=== PATIENT | female | born 1980 | race Caucasian/White ===

== ENCOUNTER 2018-05-10 12:08 | Inpatient (IN) | payer BC ==
[~2018-05-10] VITALS: Ht 175.3 cm; Wt 49.4 kg
--- OUTSIDE RECORDS SUMMARY | 2018-05-10 12:11 | XMS REPORT | Clinical Summary ---
Author Author [facility] Address Unknown Phone Unavailable Care Team Providers Care Supervisor Compressed Yeast Name Role Phone System, Provider Not In MD PCP Unavailable Allergies Active Allergy Reactions Severity Noted Date Comments Prochlorperazine 11/13/2017 Penicillins 11/13/2017 Propranolol 11/13/2017 Metoclopramide Hcl 11/13/2017 Guaifenesin 11/13/2017 Current Medications Prescription Sig. Disp. Refills Start End Date Status Date midodrine (PROAMATINE) Take 2.5 mg by mouth 3 Active 2.5 MG tabletIndications: (three) times a day. Symptomatic Orthostatic Hypotension pregabalin (LYRICA) 300 Take 600 mg by mouth Active MG capsuleIndications: daily. Fibromyalgia potassium chloride Take 20 mEq by mouth 2 Active (K-DUR) 20 MEQ CR (two) times a day. tabletIndications: Hypokalemia folic acid (FOLVITE) 1 MG Take 1 mg by mouth daily. Active tabletIndications: Folate Deficiency levothyroxine (SYNTHROID, Take 50 mcg by mouth Active LEVOXYL) 50 mcg every morning. tabletIndications: Hypothyroidism pantoprazole (PROTONIX) Take 40 mg by mouth Active 40 MG EC daily. tabletIndications: Ulcer prevention thiamine 100 MG Take 100 mg by mouth Active tabletIndications: daily. Thiamine Deficiency cyanocobalamin 100 MCG Take 100 mcg by mouth Active tabletIndications: daily. Prevention of Vitamin B12 Deficiency risperiDONE (RisperDAL) 3 Take 3 mg by mouth 2 11/25/19 Discontin MG tablet (two) times a day. 18 ued ondansetron (ZOFRAN) 8 MG Take 8 mg by mouth every 11/25/19 Discontin tablet 8 (eight) hours as needed 18 ued for nausea or vomiting. oxyCODone (OxyCONTIN) 10 Take 10 mg by mouth every 11/25/19 Discontin mg tablet,oral 12 (twelve) hours. 18 ued only,ext.rel.12 hr ER tablet oxyCODone-acetaminophen Take 1 tablet by mouth 11/25/19 Discontin (PERCOCET) 10-325 mg per every 4 (four) hours as 18 ued tablet needed for moderate pain. OLANZapine (ZYPREXA) 10 Take 1 tablet (10 mg 30 tablet 0 11/24/19 12/24/19 MG tabletIndications: ED total) by mouth nightly 18 18 and anxiety as needed (anxiety) for up to 30 days. OLANZapine (ZYPREXA) 5 MG Take 1 tablet (5 mg 30 tablet 0 11/24/19 12/24/19 tabletIndications: ED and total) by mouth daily as 18 18 anxiety needed (anxiety) for up to 30 days. buprenorphine-naloxone Place 1 tablet under the 30 tablet 0 11/24/19 12/24/19 (SUBOXONE) 2-0.5 mg per tongue daily for 30 days. 18 18 SL tabletIndications: Opioid Dependence Active Problems Problem Noted Date Benzodiazepine dependence (HCC) 11/14/2017 Drug abuse (HCC) 11/14/2017 Encounters Date Type Specialty Care Team Description 11/13[facility]2017 [facility] - Encounter Humberto Thomas DO (Primary Dx); 11/24/2017 Susi Gaytan MD Anxiety disorder, Brennon Brennan MD unspecified type after 05/09/2017 Social History Tobacco Use Types Packs/Day Years Used Date Never Smoker Smokeless Tobacco: Never Used Alcohol Use Drinks/Week oz/Week Comments No Sex Assigned at Date Recorded Not on file Last Filed Vital Signs Vital Sign Reading Time Taken Blood Pressure 111/61 11/24/2017 6:37 AM CDT Pulse 93 11/24/2017 6:37 AM CDT Temperature 36.8 C (98.3 F) 11/24/2017 6:37 AM CDT Respiratory Rate 18 11/24/2017 6:37 AM CDT Oxygen Saturation 98% 11/24/2017 6:37 AM CDT Inhaled Oxygen - - Concentration Weight 62.8 kg (138 lb 6.4 oz) 11/24/2017 6:37 AM CDT Height 175.3 cm (5' 9") 11/14/2017 11:00 AM CDT Body Mass Index 20.44 11/24/2017 6:37 AM CDT Plan of Treatment Health Maintenance Due Date Last Done Comments CERVICAL CANCER SCREENING 2003 INFLUENZA VACCINE 02/03/2018 Procedures Procedure Name Priority Date/Time Associated Diagnosis Comments US DUPLEX VENOUS LOWER Routine 11/22/2017 Results for this EXTREMITY BILATERAL 9:10 AM CDT procedure are in the results section. ZZESTIMATED GFR Routine 11/21/2017 Results for this 11:50 AM CDT procedure are in the results section. HC COMPLETE BLD COUNT Routine 11/21/2017 Results for this W/AUTO DIFF 11:50 AM CDT procedure are in the results section. VITAMIN D 25 HYDROXY Routine 11/21/2017 Results for this LEVEL 11:50 AM CDT procedure are in the results section. FOLATE RBC (GROUP TEST) Routine 11/21/2017 Results for this 11:50 AM CDT procedure are in the results section. VITAMIN B12 LEVEL Routine 11/21/2017 Results for this 11:50 AM CDT procedure are in the results section. COMPREHENSIVE METABOLIC Routine 11/21/2017 Results for this PANEL 11:50 AM CDT procedure are in the results section. B NATRIURETIC PEPTIDE Routine 11/21/2017 Results for this 11:50 AM CDT procedure are in the results section. HEMOGLOBIN A1C STAT 11/14/2017 Results for this 10:25 AM CDT procedure are in the results section. ECG 12-LEAD STAT 11/13/2017 Results for this 11:04 PM CDT procedure are in the results section. LIPID PANEL STAT 11/13/2017 Results for this 10:50 PM CDT procedure are in the results section. ZZESTIMATED GFR STAT 11/13/2017 Results for this 10:50 PM CDT procedure are in the results section. LACTIC ACID LEVEL STAT 11/13/2017 Results for this 10:50 PM CDT procedure are in the results section. MAGNESIUM LEVEL STAT 11/13/2017 Results for this 10:50 PM CDT procedure are in the results section. PHOSPHORUS LEVEL STAT 11/13/2017 Results for this 10:50 PM CDT procedure are in the results section. SALICYLATE LEVEL STAT 11/13/2017 Results for this 10:50 PM CDT procedure are in the results section. ACETAMINOPHEN LEVEL STAT 11/13/2017 Results for this 10:50 PM CDT procedure are in the results section. ALCOHOL LEVEL, BLOOD STAT 11/13/2017 Results for this 10:50 PM CDT procedure are in the results section. T4, FREE STAT 11/13/2017 Results for this 10:50 PM CDT procedure are in the results section. THYROID STIMULATING STAT 11/13/2017 Results for this HORMONE 10:50 PM CDT procedure are in the results section. COMPREHENSIVE METABOLIC STAT 11/13/2017 Results for this PANEL 10:50 PM CDT procedure are in the results section. HC COMPLETE BLD COUNT STAT 11/13/2017 Results for this W/AUTO DIFF 10:50 PM CDT procedure are in the results section. URINE CULTURE STAT 11/13/2017 Results for this 10:28 PM CDT procedure are in the results section. URINALYSIS SCREEN AND STAT 11/13/2017 Results for this MICROSCOPY, WITH REFLEX 10:23 PM CDT procedure are in the TO CULTURE results section. URINE DRUGS OF ABUSE STAT 11/13/2017 Results for this SCREEN 10:23 PM CDT procedure are in the results section. after 05/09/2017 Results * Pv duplex venous lower extremity (11/22/2017 9:10 AM) Narrative Performed At [facility] Vascular Ultrasound Laboratory Lower Extremity Venous Report [address] [place] [address] Pat.Name:Basim LAUGHLIN.ID:[id number] .Date: 11/22/2017 Refer.MD:JUNG YANG MD Exam Time: 8:44:00 AMStudy Type:LE Venous Height:69inWeight:133lb BSA: 1.74 m2 DOBAge:1980,37Y Sex: FEMALESonogrphr: Morales Thrasher, BETSY, ROBERT Pat. Stat.:Inpatient Room:T6AN-059-J TapeVol: SB, CPT - 4: 48431 Echo Event ID:[id number] Order ID:[id number] Reason for Study:Bilateral leg edema; evaluate for DVT. Procedures:Colorflow, Grayscale/2D, Pulsed wave Doppler Race:C SUMMARY: DUPLEX SCAN OBSERVATIONS Deep VeinsSuperficial Veins RightLeft RightLeft GSV (prox) NormalNormal CFV Normal Normal (above knee) Femoral Normal Normal GSV (dist) Normal Normal Profunda Normal Normal (below knee) Popliteal Normal Normal PT (prox) Normal NormalSSV Normal Normal PT (dist) Normal Normal Peroneal Normal Normal RIGHT:There is normal compressibility with no evidence of echogenic material noted within the lumen of the visualized veins. Colorflow and Doppler signals are normal. LEFT:There is normal compressibility with no evidence of echogenic material noted within the lumen of the visualized veins. Colorflow and Doppler signals are normal. PRELIMINARY FINDINGS 1. No evidence of venous thrombosis in the above visualized veins. PHYSICIAN INTERPRETATION Venous examination of the both lower extremities demonstrated no evidence of venous thrombosis in the visualized veins.Normal compressibility and augmentation of all veins visualized. Signed 11/22/2017 10:44 AM Michael Matthew MD, RPVI Procedure Note Interface, Radiology Results In - 11/22/2017 10:44 AM CDT Vascular Ultrasound Laboratory Lower Extremity Venous Report [address] [place] [address] Pat.Name: KYLIE LAUGHLIN Pat.ID: [id number] .Date: 11/22/2017 Refer.MD: JUNG YANG MD Exam Time: 8:44:00 AM Study Type:LE Venous Height: 69in Weight: 133lb BSA: 1.74 m2 Age: 7 1980,37Y Sex: FEMALE Sonogrphr: BETSY Yu, ROBERT Pat. Stat.:Inpatient Room: [address] Vol: SB, CPT - 4: 30461 Echo Event ID:[id number] Order ID: [id number] Reason for Study:Bilateral leg edema; evaluate for DVT. Procedures:Colorflow, Grayscale/2D, Pulsed wave Doppler Race: C SUMMARY: DUPLEX SCAN OBSERVATIONS Deep Veins Superficial Veins Right Left Right Left GSV (prox) Normal Normal CFV Normal Normal (above knee) Femoral Normal Normal GSV (dist) Normal Normal Profunda Normal Normal (below knee) Popliteal Normal Normal PT (prox) Normal Normal SSV Normal Normal PT (dist) Normal Normal Peroneal Normal Normal RIGHT: There is normal compressibility with no evidence of echogenic material noted within the lumen of the visualized veins. Colorflow and Doppler signals are normal. LEFT: There is normal compressibility with no evidence of echogenic material noted within the lumen of the visualized veins. Colorflow and Doppler signals are normal. PRELIMINARY FINDINGS 1. No evidence of venous thrombosis in the above visualized veins. PHYSICIAN INTERPRETATION Venous examination of the both lower extremities demonstrated no evidence of venous thrombosis in the visualized veins. Normal compressibility and augmentation of all veins visualized. Signed 11/22/2017 10:44 AM Michael Matthew MD, RPVI Performing Organization Address [facility] Hospitalcode Phone Number [facility] [address] [place] [address] * Estimated GFR (11/21/2017 11:50 AM) Only the most recent of 2 results within the time period is included. GFR Non Af Amer 81 mL/min/1.73 m2 [facility] DEPARTMENT OF PATHOLOGY AND GENOMIC MEDICINE GFR Af Amer >90 mL/min/1.73 m2 [facility] DEPARTMENT OF Comment: PATHOLOGY AND Chronic kidney disease: <60 GENOMIC MEDICINE mL/min/1.73m2 Kidney failure: <15 mL/min/1.73m2 The estimated GFR is calculated from the IDMS-traceable Modification of Diet in Renal Disease Equation. The accuracy of the calculation is poor when the creatinine is normal. Calculated values >90 mL/min/1.73m2 are not reported. This equation has not been validated in children (<18 years), women, the elderly (>70 years), or ethnic groups other than Caucasians and Americans. Specimen Plasma specimen Performing Organization Address City/[facility]/Zipcode Phone Number [facility] DEPARTMENT OF [address] [place] [address] PATHOLOGY AND GENOMIC MEDICINE * Vitamin D 25 hydroxy level (11/21/2017 11:50 AM) Vitamin D, 25-hydroxy 56.6 30.0 - 150.0 ng/mL [facility] DEPARTMENT OF Comment: PATHOLOGY AND This assay reports the sum of [employer] MEDICINE 25-hydroxy vitamin D3 and 25-hydroxy vitamin D2. Reference range: 0-17 years: Deficiency: less than 20ng/mL Optimum level: greater than or equal to 20 ng/mL. 18 years and older: Deficiency: less than 20ng/mL Insufficiency: 20-29 ng/mL Optimum Level: 30-80 ng/mL The assay reportable range is 3.4155.9 ng/mL. Levels higher than 150 ng/mL may be associated with toxicity. If toxicity is clinically suspected and the reported result is >155.9 ng/mL,contact lab for alternative methods to obtain a definitivelevel. If separate quantitation of 25-hydroxy vitamin D3 and 25-hydroxy vitamin D2 is needed, please contact lab for alternative methods. Specimen Blood Performing Organization Address City/State/Zipcode Phone Number [facility] DEPARTMENT OF [address] [place] [phone] PATHOLOGY AND GENOMIC MEDICINE * CBC with platelet and differential (11/21/2017 11:50 AM) Only the most recent of 2 results within the time period is included. WBC 7.40 4.50 - 11.00 k/uL [facility] DEPARTMENT OF PATHOLOGY AND GENOMIC MEDICINE RBC 3.44 (L) 4.20 - 5.50 m/uL [facility] DEPARTMENT OF PATHOLOGY AND GENOMIC MEDICINE HGB 10.6 (L) 12.0 - 16.0 g/dL [facility] DEPARTMENT OF PATHOLOGY AND GENOMIC MEDICINE HCT 34.1 (L) 37.0 - 47.0 % [facility] DEPARTMENT OF PATHOLOGY AND GENOMIC MEDICINE MCV 99.1 82.0 - 100.0 fL [facility] DEPARTMENT OF PATHOLOGY AND GENOMIC MEDICINE MCH 30.8 27.0 - 34.0 pg [facility] DEPARTMENT OF PATHOLOGY AND GENOMIC MEDICINE MCHC 31.1 31.0 - 37.0 g/dL [facility] DEPARTMENT OF PATHOLOGY AND GENOMIC MEDICINE RDW - SD 53.2 37.0 - 55.0 fL [facility] DEPARTMENT OF PATHOLOGY AND GENOMIC MEDICINE MPV 12.2 8.8 - 13.2 fL [facility] DEPARTMENT OF PATHOLOGY AND GENOMIC MEDICINE Platelet count 243 150 - 400 k/uL [facility] DEPARTMENT OF PATHOLOGY AND GENOMIC MEDICINE Nucleated RBC 0.00 /100 WBC [facility] DEPARTMENT OF PATHOLOGY AND GENOMIC MEDICINE Neutrophils 67.0 39.0 - 69.0 % [facility] DEPARTMENT OF PATHOLOGY AND GENOMIC MEDICINE Lymphocytes 27.7 25.0 - 45.0 % [facility] DEPARTMENT OF PATHOLOGY AND GENOMIC MEDICINE Monocytes 4.1 0.0 - 10.0 % [facility] DEPARTMENT OF PATHOLOGY AND GENOMIC MEDICINE Eosinophils 0.7 0.0 - 5.0 % [facility] DEPARTMENT OF PATHOLOGY AND GENOMIC MEDICINE Basophils 0.4 0.0 - 1.0 % [facility] DEPARTMENT OF PATHOLOGY AND GENOMIC MEDICINE Immature granulocytes 0.1Comment: "Immature 0.0 - 1.0 % [facility] DEPARTMENT OF granulocytes" (promyelocytes, PATHOLOGY AND myelocytes, metamyelocytes) GENOMIC MEDICINE Specimen Blood Performing Organization Address City/[facility]/[place] [address] PATHOLOGY AND GENOMIC MEDICINE * B natriuretic peptide (11/21/2017 11:50 AM) BNP 6 0 - 100 pg/mL [facility] DEPARTMENT OF PATHOLOGY AND GENOMIC MEDICINE Specimen Blood Performing Organization Address City/[facility] Hospital[place] [address] PATHOLOGY AND [employer] [facility] * Folate RBC (group test) (11/21/2017 11:50 AM) RBC folate 1,455 499 - 1,504 ng/mL [facility] DEPARTMENT OF PATHOLOGY AND GENOMIC MEDICINE Specimen Blood Performing Organization Address City/[facility] Hospital[place] [address] PATHOLOGY AND [facility] * Vitamin B12 level (11/21/2017 11:50 AM) Vitamin B12 >1600 (H) 211 - 946 pg/mL [facility] DEPARTMENT OF Comment: PATHOLOGY AND Significant overlap exists GENOMIC MEDICINE between normal and deficiency states. However, most patients with deficiencies will have Serum B12 <200 pg/mL. Specimen Serum Performing Organization Address [facility] Hospital[place] [address] PATHOLOGY AND [employer] MEDICINE * Comprehensive metabolic panel (11/21/2017 11:50 AM) Only the most recent of 2 results within the time period is included. Sodium 140 135 - 148 mEq/L [facility] DEPARTMENT OF PATHOLOGY AND GENOMIC MEDICINE Potassium 4.2 3.5 - 5.0 mEq/L [facility] DEPARTMENT OF PATHOLOGY AND GENOMIC MEDICINE Chloride 105 98 - 112 mEq/L [facility] DEPARTMENT OF PATHOLOGY AND GENOMIC MEDICINE CO2 26 24 - 31 mEq/L [facility] DEPARTMENT OF PATHOLOGY AND GENOMIC MEDICINE Anion gap 9@ANIO 7 - 15 mEq/L [facility] DEPARTMENT OF PATHOLOGY AND GENOMIC MEDICINE BUN 10 6 - 20 mg/dL [facility] DEPARTMENT OF PATHOLOGY AND GENOMIC MEDICINE Creatinine 0.8 0.5 - 0.9 mg/dL [facility] DEPARTMENT OF PATHOLOGY AND GENOMIC MEDICINE Glucose 91 65 - 99 mg/dL [facility] DEPARTMENT OF PATHOLOGY AND GENOMIC MEDICINE Calcium 8.2 (L) 8.3 - 10.2 mg/dL [facility] DEPARTMENT OF PATHOLOGY AND GENOMIC MEDICINE Protein 5.4 (L) 6.3 - 8.3 g/dL [facility] DEPARTMENT OF Comment: PATHOLOGY AND [place] GENOMIC MEDICINE 4.6-7.0 g/dL 1 week 4.4-7.6 g/dL 7 months-1year 5.1-7.3 g/dL 1-2 years5.6-7 .5 g/dL >3 years6.0-8 .0 g/dL 18-150 6.3-8.3 g/dL Albumin 2.1 (L) 3.5 - 5.0 g/dL [facility] DEPARTMENT OF PATHOLOGY AND GENOMIC MEDICINE A/G ratio 0.6 (L) 0.7 - 3.8 [facility] DEPARTMENT OF PATHOLOGY AND GENOMIC MEDICINE Alkaline phosphatase 102 35 - 104 U/L [facility] DEPARTMENT OF PATHOLOGY AND GENOMIC MEDICINE AST 39 (H) 10 - 35 U/L [facility] DEPARTMENT OF PATHOLOGY AND GENOMIC MEDICINE ALT 25 5 - 50 U/L [facility] DEPARTMENT OF PATHOLOGY AND GENOMIC MEDICINE Total bilirubin 0.3 0.0 - 1.2 mg/dL [facility] DEPARTMENT OF PATHOLOGY AND GENOMIC MEDICINE Specimen Plasma specimen Performing Organization Address City/State/Zipcode Phone Number [facility] DEPARTMENT OF [address] [place] [address] PATHOLOGY AND GENOMIC MEDICINE * Hemoglobin A1c (11/14/2017 10:25 AM) Hemoglobin A1C 4.1 4.0 - 5.6 % [facility] DEPARTMENT OF Comment: PATHOLOGY AND HbA1c cutoffs for diagnosing GENOMIC MEDICINE diabetes: 4.0% - 5.6%=normal 5.7% - 6.4%=increased risk for diabetes (prediabetes) >=6.5%=diabetes Goals for glycemic control (ADA 2016) < 7.0%Target for non adults with diabetes. More or less stringent targets may be appropriate for individual patients. <7.5% Target for Children and adolescents with type 1 diabetes. Narrative Performed At ADD ON PER NURSE KENISHAO11/14/201710:25 [facility] DEPARTMENT OF ?Specimen must be placed on ice and delivered immediately to PATHOLOGY AND ?[facility]. GENOMIC MEDICINE ?Specimen must be received in the laboratory within 2 hours of ?collection. ?Specimen Source->Urine Performing Organization Address [facility] Hospitalcomn [place] [address] PATHOLOGY AND GENOMIC MEDICINE * ECG 12 lead (11/13/2017 11:04 PM) Ventricular rate 89 [facility] MUSE Atrial rate 89 [facility] MUSE VA interval 146 [facility] MUSE QRSD interval 76 [facility] MUSE QT interval 342 [facility] MUSE QTC interval 416 [facility] MUSE P axis 1 19 [facility] MUSE QRS axis 1 44 [facility] MUSE T wave axis 16 [facility] MUSE EKG impression Normal sinus rhythm-Low [facility] MUSE voltage QRS-Borderline ECG-No previous ECGs available- Performing Organization Address [facility] [place] [address] * Thyroid stimulating hormone (11/13/2017 10:50 PM) TSH 3.57 0.27 - 4.20 uIU/mL [facility] DEPARTMENT OF PATHOLOGY AND GENOMIC MEDICINE Specimen Plasma specimen Performing Organization Address [facility] [place] [address] PATHOLOGY AND [facility] * T4, free (11/13/2017 10:50 PM) T4, free 1.3 0.9 - 1.7 ng/dL [facility] DEPARTMENT OF PATHOLOGY AND GENOMIC MEDICINE Specimen Plasma specimen Performing Organization Address [facility] [place] [address] PATHOLOGY AND [facility] MEDICINE * Phosphorus level (11/13/2017 10:50 PM) Phosphorus 3.2 2.4 - 4.5 mg/dL [facility] DEPARTMENT OF PATHOLOGY AND GENOMIC MEDICINE Specimen Plasma specimen Performing Organization Address [facility] Hospital[place] [address] PATHOLOGY AND [facility] MEDICINE * Magnesium level (11/13/2017 10:50 PM) Magnesium 1.5 (L) 1.6 - 2.6 mg/dL [facility] DEPARTMENT OF PATHOLOGY AND GENOMIC MEDICINE Specimen Plasma specimen Performing Organization Address [facility] Phone Number [facility] [place] [address] PATHOLOGY AND GENOMIC MEDICINE * Lactic acid level (11/13/2017 10:50 PM) Lactic acid 1.1 0.5 - 2.2 mmol/L [facility] DEPARTMENT OF PATHOLOGY AND GENOMIC MEDICINE Specimen Plasma specimen Performing Organization Address [facility] Phone Number [facility] [place] [address] PATHOLOGY AND GENOMIC MEDICINE * Alcohol level, blood (11/13/2017 10:50 PM) Alcohol None Detected mg/dL [facility] DEPARTMENT OF Comment: PATHOLOGY AND Normal GENOMIC MEDICINE None Detected Legal Intoxication in [place]80 mg/dL (0.08%) - Whole Blood Toxic Concentration 200 mg/dL (0.2%) Potentially Fatal3 50 - 500 mg/dL (0.35 - 0.5%) Alcohol percent None Detected % [facility] DEPARTMENT OF PATHOLOGY AND GENOMIC MEDICINE Specimen Plasma specimen Performing Organization Address [facility] Phone Number [facility] [place] [address] PATHOLOGY AND GENOMIC MEDICINE * Acetaminophen level (11/13/2017 10:50 PM) Acetaminophen level <15.0 10.0 - 30.0 ug/mL [facility] DEPARTMENT OF Comment: PATHOLOGY AND Therapeutic GENOMIC MEDICINE 10-30 ug/mL Possible Toxicity 150-200 ug/mL Probable Toxicity >200 ug/mL Specimen Plasma specimen Performing Organization Address [facility] Phone Number [facility] [place] [address] PATHOLOGY AND GENOMIC MEDICINE * Salicylate level (11/13/2017 10:50 PM) Salicylate <3.0 3.0 - 30.0 mg/dL [facility] DEPARTMENT OF PATHOLOGY AND GENOMIC MEDICINE Specimen Plasma specimen Performing Organization Address [facility] Phone Number [facility] [place] [address] PATHOLOGY AND GENOMIC MEDICINE * Lipid panel (11/13/2017 10:50 PM) Cholesterol 116 <200 mg/dL [facility] DEPARTMENT OF PATHOLOGY AND GENOMIC MEDICINE Triglycerides 90 <150 mg/dL [facility] DEPARTMENT OF PATHOLOGY AND GENOMIC MEDICINE HDL cholesterol 61 >40 mg/dL [facility] DEPARTMENT OF PATHOLOGY AND GENOMIC MEDICINE LDL cholesterol 29Comment: Result obtained by <100 mg/dL [facility] DEPARTMENT OF direct LDL measurement PATHOLOGY AND GENOMIC MEDICINE Lipid panel SeeBelow [facility] DEPARTMENT OF interpretation Comment: PATHOLOGY AND Total Cholesterol GENOMIC MEDICINE (mg/dL) <200 Desirable 200-239Borderline -high >=240High Triglycerides (mg/dL) <150 Normal 150-199Borderline -high 200-499High >=500Very high HDL Cholesterol (mg/dL) <40Low (male) <40Low (female) LDL Cholesterol (mg/dL) <100 Optimal 100-129Near or above optimal 130-159Borderline -high 160-189High >=190Very high Risk Catergories that modify LDL goals. Risk Catergories LDL goal (mg/dL) CHD and CHD risk equivalent<100 (10-year risk >20%) Multiple (2+) risk factors <130 (10-year risk=<20%) 0-1 risk factors <160 (<10-year risk) Defining levels of lipids in metabolic syndrome Triglycerides >=150 mg/dL HDL Cholesterol Men <40 mg/dL Women <40 mg/dL Non-HDL cholesterol is a second target for therapy in persons with high triglycerides (>=200 mg/dL) Specimen Plasma specimen Narrative Performed At ADD ON PER NURSE SHIRA11/14/201710:25 [facility] DEPARTMENT OF ?Specimen must be placed on ice and delivered immediately to PATHOLOGY AND ?[facility]. GENOMIC MEDICINE ?Specimen must be received in the laboratory within 2 hours of ?collection. ?Specimen Source->Urine Performing Organization Address City/[facility]/Zipcode Phone Number [facility] DEPARTMENT OF [address] [place] [phone] PATHOLOGY AND GENOMIC MEDICINE * Urine culture (11/13/2017 10:28 PM) Urine culture SEE COMMENTComment: [facility] DEPARTMENT OF Bacteriuria screen negative. PATHOLOGY AND GENOMIC MEDICINE Performing Organization Address City/[facility]/Zipcode Phone Number [facility] DEPARTMENT OF [address] [place] [phone] PATHOLOGY AND GENOMIC MEDICINE * Urinalysis screen and microscopy, with reflex to culture (11/13/2017 10:23 PM) Specimen site Clean catch [facility] DEPARTMENT OF PATHOLOGY AND GENOMIC MEDICINE Color, UA Yellow [facility] DEPARTMENT OF PATHOLOGY AND GENOMIC MEDICINE Appearance, UA Clear [facility] DEPARTMENT OF PATHOLOGY AND GENOMIC MEDICINE Specific gravity, UA 1.012 1.001 - 1.035 [facility] DEPARTMENT OF PATHOLOGY AND GENOMIC MEDICINE pH, UA 6.0 5.0 - 8.5 [facility] DEPARTMENT OF PATHOLOGY AND GENOMIC MEDICINE Protein, UA Negative Negative [facility] DEPARTMENT OF PATHOLOGY AND GENOMIC MEDICINE Glucose, UA Negative Negative [facility] DEPARTMENT OF PATHOLOGY AND GENOMIC MEDICINE Ketones, UA Negative Negative [facility] DEPARTMENT OF PATHOLOGY AND GENOMIC MEDICINE Bilirubin, UA Negative Negative [facility] DEPARTMENT OF PATHOLOGY AND GENOMIC MEDICINE Blood, UA Negative Negative [facility] DEPARTMENT OF PATHOLOGY AND GENOMIC MEDICINE Nitrite, UA Negative Negative [facility] DEPARTMENT OF PATHOLOGY AND GENOMIC MEDICINE Urobilinogen, UA 2.0 (A) <2.0 [facility] DEPARTMENT OF PATHOLOGY AND GENOMIC MEDICINE Leukocyte esterase, UA Negative Negative [facility] DEPARTMENT OF PATHOLOGY AND GENOMIC MEDICINE Epithelial cells, UA <1 /HPF [facility] DEPARTMENT OF PATHOLOGY AND GENOMIC MEDICINE WBC, UA 2 0 - 4 /HPF [facility] DEPARTMENT OF PATHOLOGY AND GENOMIC MEDICINE RBC, UA <1 0 - 5 /HPF [facility] DEPARTMENT OF PATHOLOGY AND GENOMIC MEDICINE Bacteria, UA Few None seen [facility] DEPARTMENT OF PATHOLOGY AND GENOMIC MEDICINE Yeast, UA None seen [facility] DEPARTMENT OF PATHOLOGY AND GENOMIC MEDICINE Yeast with pseudohyphae, None seen [facility] DEPARTMENT OF UA PATHOLOGY AND GENOMIC MEDICINE Calcium oxalate crystals, Few [facility] DEPARTMENT OF UA PATHOLOGY AND GENOMIC MEDICINE Specimen Urine Performing Organization Address City/State/Zipcode Phone Number [facility] DEPARTMENT OF [address] [place] [phone] PATHOLOGY AND GENOMIC MEDICINE * Urine drugs of abuse screen (11/13/2017 10:23 PM) Amphetamine screen, urine Negative [facility] DEPARTMENT OF PATHOLOGY AND GENOMIC MEDICINE Barbiturate screen, urine Negative [facility] DEPARTMENT OF PATHOLOGY AND GENOMIC MEDICINE Benzodiazepine screen, Negative [facility] DEPARTMENT OF urine PATHOLOGY AND GENOMIC MEDICINE Cannabinoid screen, urine Negative [facility] DEPARTMENT OF PATHOLOGY AND GENOMIC MEDICINE Cocaine screen, urine Negative [facility] DEPARTMENT OF PATHOLOGY AND GENOMIC MEDICINE Methadone metabolite Negative [facility] DEPARTMENT OF (EDDP), urine PATHOLOGY AND GENOMIC MEDICINE Opiates screen, urine Negative [facility] DEPARTMENT OF PATHOLOGY AND GENOMIC MEDICINE Oxycodone screen, urine Positive (A) [facility] DEPARTMENT OF PATHOLOGY AND GENOMIC MEDICINE Phencyclidine screen, Negative [facility] DEPARTMENT OF urine PATHOLOGY AND GENOMIC MEDICINE Tricyclic screen, urine Negative [facility] DEPARTMENT OF Comment: PATHOLOGY AND Drug screen minimum GENOMIC MEDICINE concentration of detectability Amphetamines 1000 ng/mL Barbiturates 200 ng/mL Benzodiazepines 300 ng/mL Cocaine 300 ng/mL Methadone 300 ng/mL Opiates 300 ng/mL Oxycodone 300 ng/mL Phencyclidine 25 ng/mL Cannabinoids 50 ng/mL Tricyclics 1000 ng/mL Negative test results indicates presumptive evidence of lack of clinically significant drug concentration in this urine specimen. Positive test results are presumptive evidence of clinically significant drug concentration in this urine specimen. Testing performed for medical purposes only. Specimen Urine Performing Organization Address City/State/Zipcode Phone Number [facility] DEPARTMENT OF [address] [place] [address] PATHOLOGY AND GENOMIC MEDICINE after 05/09/2017 Insurance Payer Benefit Subscriber ID Type Phone Address Plan / Group BCBS BCBS xxxxxxxxxxxx PPO CHOICE PPO/[place] [address]
[2018-05-10] MEDS ORDERED: SODIUM CHLORIDE 0.9% 1000ML 1,000 ML IV STA (12:20)
[2018-05-10 13:12] LABS: BASOPHILS % 0.4 % (0.0-1.0); HEMATOCRIT 41.6 % (34.2-44.1); HEMOGLOBIN 13.7 g/dL (12.0-16.0); LYMPHOCYTES # (AUTO) 1.5 (1.0-3.2); LYMPHOCYTES % 17.5 % (18.0-39.1); MEAN CORPUSCULAR HEMOGLOBIN 29.3 pg (28-32); MEAN CORPUSCULAR HGB CONC 32.9 g/dL (31-35); MEAN CORPUSCULAR VOLUME 89.1 fL (81-99); MONOCYTES # (AUTO) 0.4 (0.2-0.8); MONOCYTES % 5.1 % (4.4-11.3); NEUTROPHILS # (AUTO) 6.5 (2.1-6.9); NEUTROPHILS % 76.9 % (38.7-80.0); PLATELET COUNT 176 x10e3/uL (140-360); RED BLOOD COUNT 4.67 x10e6/uL (3.6-5.1); RED CELL DISTRIBUTION WIDTH 14.8 % (11.7-14.4)
[2018-05-10 13:16] LABS: CLARITY,URINE SL CLOUDY (CLEAR); COLOR,URINE YELLOW (YELLOW); KETONES,URINE TRACE (NEGATIVE); LEUKOCYTE ESTERASE ,URINE 1+ (NEGATIVE); NITRITE,URINE NEGATIVE (NEGATIVE); PROTEIN,URINE DIPSTICK 1+ (NEGATIVE)
[2018-05-10 13:17] LABS: BILIRUBIN,URINE 1+ (NEGATIVE); PREGNANCY TEST, URINE NEGATIVE (NEGATIVE); URINE UROBILINOGEN 1 mg/dL (0.2 - 1)
[2018-05-10 13:27] LABS: AMORPHOUS SEDIMENT,URINE FEW (FEW); BACTERIA,URINE MANY /HPF; MUCUS,URINE MODERATE (RARE)
[2018-05-10 13:34] LABS: ALANINE AMINOTRANSFERASE 53 IU/L (0-55); ALBUMIN 2.2 g/dL (3.5-5.0); ALBUMIN/GLOBULIN RATIO 0.7 (0.8-2.0); ALKALINE PHOSPHATASE 109 IU/L (40-150); AMYLASE 47 U/L (25-125); ANION GAP 16.5 mmol/L (8-16); BLOOD UREA NITROGEN 16 mg/dL (7-26); BUN/CREATININE RATIO 12 (6-25); CARBON DIOXIDE 26 mmol/L (22-29); CHLORIDE 103 mmol/L (98-107); EST GLOMERULAR FILTRATION RATE 46 ML/MIN (60-); GLUCOSE 66 mg/dL (74-118); POTASSIUM 3.5 mmol/L (3.5-5.1); SODIUM 142 mmol/L (136-145)
[2018-05-10 13:37] LABS: LIPASE < 4 U/L (8-78)
--- NOTE | 2018-05-10 14:21 | Diagnostic Imaging Report ---
Examination: Single AP view of the chest. COMPARISON: None. INDICATION: Anorexia, weight loss DISCUSSION: Lines/tubes: None. Lungs: The lungs are well inflated and clear. No pneumonia or pulmonary edema. Pleura: No pleural effusion or pneumothorax. Heart and mediastinum: The heart and the mediastinum are unremarkable. Bones and soft tissues: No acute bony abnormalities. IMPRESSION: 1. No acute cardiopulmonary abnormalities. Signed by: Dr. Shreyas Zelaya M.D. on 05/10/2018 2:17 PM
[2018-05-10] MEDS ORDERED: CEFTRIAXONE SOD 1 GM VIAL IV SCH (14:30)
--- NOTE | 2018-05-10 15:30 | Diagnostic Imaging Report ---
EXAMINATION: CT of the abdomen and pelvis with contrast. TECHNIQUE: Helical CT images of the abdomen and pelvis were performed from the lung bases to the lesser trochanters after the intravenous administration of 150 cc of Isovue 300 and the oral administration of none. Coronal and sagittal reformatted images were obtained.Dose modulation, iterative reconstruction, and/or weight based adjustment of the mA/kV was utilized to reduce the radiation dose to as low as reasonably achievable. COMPARISON: None. CLINICAL HISTORY:Abdominal pain, anorexia, weight loss DISCUSSION: ABDOMEN/PELVIS: LOWER THORAX:Unremarkable. HEPATOBILIARY: Hepatic steatosis. No focal enhancing lesion. No intra-or extrahepatic biliary ductal dilation. Cholecystectomy. SPLEEN: No splenomegaly. PANCREAS: No focal masses or ductal dilatation. ADRENALS: No adrenal nodules. KIDNEYS/URETERS: Decreased enhancement of the right kidney comparison with the left. Obstructing distal right ureteral calculus measuring 5 mm with hydroureteronephrosis. PELVIC ORGANS/BLADDER: Bladder is unremarkable. IUD. PERITONEUM/RETROPERITONEUM: No free air or fluid. LYMPH NODES: No intra-abdominal, retroperitoneal, pelvic or inguinal lymphadenopathy. VESSELS: The celiac trunk,superior and inferior mesenteric and bilateral renal arteries are patent The portal, superior mesenteric and splenic veins are patent. GI TRACT: No distention or wall thickening. Moderate amount retained stool. Postsurgical change to the stomach. BONES AND SOFT TISSUE: No bony destructive lesions. No soft tissue abnormalities. IMPRESSION: 5 mm distal right ureteral calculus causing right hydroureteronephrosis. Signed by: Dr. Shreyas Zelaya M.D. on 05/10/2018 3:27 PM
[2018-05-10] MEDS ORDERED: SODIUM CHLORIDE 0.9% 50ML 50 ML ONE (15:52)
[2018-05-10] MEDS ORDERED: IOPAMIDOL 370 MG/ML 200 ML INFUS..BTL INJ ONE (15:53)
[2018-05-10] MEDS ORDERED: D5.45%NS/KCL 20MEQ 1,000 ML IV SCH (16:06)
[2018-05-10] MEDS ORDERED: LEVOFLOXACIN 500MG/D5W 100ML 100 ML IV STA (16:09)
[2018-05-10] MEDS ORDERED: ONDANSETRON HCL INJ 2 MG/ML VIAL IV PRN (16:15)
[2018-05-10] MEDS ORDERED: MORPHINE SULFATE INJ 4 MG/ML INJ IV PRN (16:15)
[2018-05-10] MEDS ORDERED: LEVOFLOXACIN 500MG/D5W 100ML IV SCH (16:15)
[2018-05-10] MEDS ORDERED: PROMETHAZINE 12.5MG/ NACL 0.9% 12.5 MG/50 ML BAG IV PRN (16:30)
--- OUTSIDE RECORDS SUMMARY | 2018-05-10 16:54 | XMS REPORT ---
Author Author [facility] Address Unknown Phone Unavailable Care Team Providers Care Drag Sawyer Name Role Phone Curt MCMAHON Unavailable Unavailable Problems This patient has no known problems. Allergies, Adverse Reactions, Alerts This patient has no known allergies or adverse reactions. Medications This patient has no known medications. Results Test Description Test Time Test Comments Text Results Atomic Results Result Comments CT ABDOMEN/PELVIS W 2018-05-10 15:21:00 [place] [address] Patient Name: FRANK LAUGHLIN MR #: [id number] : 1980 Age/Sex: 38/F Req #: [id number] Adm Physician: Ordered by: FRANCINE TRIVEDI SOAP GRINDER Report #: [id number] Location: ER Room/Bed: Procedure: [id number] CT/CT ABDOMEN/PELVIS W Exam Date: 05/10/18 Exam Time: 1445 REPORT STATUS: Signed EXAMINATION: CT of the abdomen and pelvis with contras t. TECHNIQUE: Helical CT images of the abdomen and pelvis were performed from the lung bases to the lesser trochanters after the intravenous administration of 150 cc of Isovue 300 and the oral administration of none. Coronal and sagittal reformatted images were obtained.Dose modulation, iterative reconstruction, and/or weight based adjustment of the mA/kV was utilized to reduce the radiation dose to as low as reasonably achievable. COMPARISON: None. CLINICAL HISTORY:Abdominal pain, anorexia, weight loss DISCUSSION: ABDOMEN/PELVIS: LOWER THORAX:Unremarkable. HEPATOBILIARY: Hepatic steatosis. No focal enhancing lesion. No intra-or extrahepatic biliary ductal dilation. Cholecystectomy. SPLEEN: No splenomegaly. PANCREAS: No focal masses or ductal dilatation. ADRENALS: No adrenal nodules. KIDNEYS/URETERS: Decreased enhancement of the right kidney comparison with the left. Obstructing distal right ureteral calculus measuring 5 mm with hydroureteronephrosis. PELVIC ORGANS/BLADDER: Bladder is unremarkable. IUD. PERITONEUM/RETROPERITONEUM: No free air or fluid. LYMPH NODES: No intra-abdominal, retroperitoneal, pelvic or inguinal lymphadenopathy. VESSELS: The celiac trunk,superior and inferior mesenteric and bilateral renal arteries are patent The portal, superior mesenteric and splenic veins are patent. GI TRACT: No distention or wall thickening. Moderate amount retained stool. Postsurgical change to the stomach. BONES AND SOFT TISSUE: No bony destructive lesions. No soft tissue abnormalities. IMPRESSION: 5 mm distal right ureteral calculus causing right hydroureteronephrosis. Signed by: Dr. Boom Adams M.D. on 05/10/2018 3:27 PM Dictated By: BOOM ADAMS MD 152 Transcribed By: EVELYN on 05/10/18 1527 COPY TO: FRANCINE TRIVEDI NP CHEST SINGLE (PORTABLE) 2018-05-10 14:12:00 [place] [address] Patient Name: FRANK LAUGHLIN MR #: [id number] : 1980 Age/Sex: 38/F Req #: [id number] Adm Physician: Ordered by: FRANCINE TRIVEDI NP Report #: [id number] Location: ER Room/Bed: Procedure: [id number] DX/CHEST SINGLE (PORTABLE) Exam Date: Exam Time: REPORT STATUS: Signed Examination: Single AP view of the chest. COMPARISON: Non e. INDICATION: Anorexia, weight loss DISCUSSION: Lines/tubes: None. Lungs: The lungs are well inflated and clear. No pneumonia or pulmonary edema. Pleura: No pleural effusion or pneumothorax. Heart and mediastinum: The heart and the mediastinum are unremarkable. Bones and soft tissues: No acute bony abnormalities. IMPRESSION: 1. No acute cardiopulmonary abnormalities. Signed by: Dr. Boom Adams M.D. on 05/10/2018 2:17 PM Dictated By: BOOM ADAMS MD 16 Transcribed By: EVELYN on 05/10/181416 COPY TO: FRANCINE TRIVEDI NP
--- OUTSIDE RECORDS SUMMARY | 2018-05-10 16:54 | XMS REPORT | Clinical Summary ---
Author Author [facility] Address Unknown Phone Unavailable Care Team Providers Care Shift Lab Technician Name Role Phone System, Provider Not In [...] Date Type Specialty Care Team Description 11/13/2017 [facility] Benzod[facility]ine [facility] - Encounter Humberto Thomas [...] extremity (11/22/2017 9:10 AM) Narrative Performed At [facility] Vascular Ultrasound Laboratory Lower Extremity Venous Report [address] [place] [address] Pat.Name:Basim LAUGHLIN.ID:[id number] .Date: 11/22/2017 Refer.MD:JUNG YANG MD Exam Time: 8:44:00 AMStudy Type:LE Venous Height:69inWeight:133lb BSA: 1.74 m2 DOBAge:1980,37Y Sex: FEMALESonogrphr: Morales Thrasher, BETSY, ROBERT Pat. Stat.:Inpatient Room:[id number]-[id number] TapeVol: SB, CPT - 4: 33071 Echo Event ID:[id number] Order ID:[id number] Reason for Study:Bilateral leg edema; evaluate for [...] Ultrasound Laboratory Lower Extremity Venous Report [address] [place] [address] Pat.Name: KYLIE LAUGHLIN Pat.ID: [id number] .Date: 11/22/2017 Refer.MD: JUNG YANG MD Exam Time: 8:44:00 AM Study Type:LE Venous Height: 69in Weight: 133lb BSA: 1.74 m2 Age: 7 1980,37Y Sex: FEMALE Sonogrphr: BETSY Yu, ROBERT Pat. Stat.:Inpatient Room: [address] Vol: SB, CPT - 4: 79918 Echo Event ID:[id number] Order ID: [id number] Reason for Study:Bilateral leg edema; evaluate for [...] Michael Matthew MD, RPVI Performing Organization Address [facility] Phone Number [facility] [address] [place] [address] * Estimated GFR (11/21/2017 11:50 AM) Only the most recent of 2 results within the time period is included. GFR Non Af Amer 81 mL/min/1.73 m2 [facility] DEPARTMENT OF PATHOLOGY AND GENOMIC MEDICINE GFR Af Amer >90 mL/min/1.73 m2 [facility] DEPARTMENT OF Comment: PATHOLOGY AND Chronic [...] Americans. Specimen Plasma specimen Performing Organization Address City/[facility]/Zipcode Phone Number [facility] DEPARTMENT OF [address] [place] [address] PATHOLOGY AND GENOMIC MEDICINE * Vitamin D 25 hydroxy level (11/21/2017 11:50 AM) Vitamin D, 25-hydroxy 56.6 30.0 - 150.0 ng/mL [facility] DEPARTMENT OF Comment: PATHOLOGY AND This assay reports the sum of [facility] 25-hydroxy vitamin D3 and 25-hydroxy vitamin [...] Blood Performing Organization Address City/State/Zipcode Phone Number [facility] DEPARTMENT OF [address] [place] [address] PATHOLOGY AND GENOMIC MEDICINE * CBC with platelet and differential (11/21/2017 11:50 AM) Only the most recent of 2 results within the time period is included. WBC 7.40 4.50 - 11.00 k/uL [facility] DEPARTMENT OF PATHOLOGY AND GENOMIC MEDICINE RBC 3.44 (L) 4.20 - 5.50 m/uL [facility] DEPARTMENT OF PATHOLOGY AND GENOMIC MEDICINE HGB 10.6 (L) 12.0 - 16.0 g/dL [facility] DEPARTMENT OF PATHOLOGY AND GENOMIC MEDICINE HCT 34.1 (L) 37.0 - 47.0 % [facility] DEPARTMENT OF PATHOLOGY AND GENOMIC MEDICINE MCV 99.1 82.0 - 100.0 fL [facility] DEPARTMENT OF PATHOLOGY AND GENOMIC MEDICINE MCH 30.8 27.0 - 34.0 pg [facility] DEPARTMENT OF PATHOLOGY AND GENOMIC MEDICINE MCHC 31.1 31.0 - 37.0 g/dL [facility] DEPARTMENT OF PATHOLOGY AND GENOMIC MEDICINE RDW - SD 53.2 37.0 - 55.0 fL [facility] DEPARTMENT OF PATHOLOGY AND GENOMIC MEDICINE MPV 12.2 8.8 - 13.2 fL [facility] DEPARTMENT OF PATHOLOGY AND GENOMIC MEDICINE Platelet count 243 150 - 400 k/uL [facility] DEPARTMENT OF PATHOLOGY AND GENOMIC MEDICINE Nucleated RBC 0.00 /100 WBC [facility] DEPARTMENT OF PATHOLOGY AND GENOMIC MEDICINE Neutrophils 67.0 39.0 - 69.0 % [facility] DEPARTMENT OF PATHOLOGY AND GENOMIC MEDICINE Lymphocytes 27.7 25.0 - 45.0 % [facility] DEPARTMENT OF PATHOLOGY AND GENOMIC MEDICINE Monocytes 4.1 0.0 - 10.0 % [facility] DEPARTMENT OF PATHOLOGY AND GENOMIC MEDICINE Eosinophils 0.7 0.0 - 5.0 % [facility] DEPARTMENT OF PATHOLOGY AND GENOMIC MEDICINE Basophils 0.4 0.0 - 1.0 % [facility] DEPARTMENT OF PATHOLOGY AND GENOMIC MEDICINE Immature granulocytes 0.1Comment: "Immature 0.0 - 1.0 % [facility] DEPARTMENT OF granulocytes" (promyelocytes, PATHOLOGY AND myelocytes, metamyelocytes) GENOMIC MEDICINE Specimen Blood Performing Organization Address City/[facility]/[place] [address] PATHOLOGY AND GENOMIC MEDICINE * B natriuretic peptide (11/21/2017 11:50 AM) BNP 6 0 - 100 pg/mL [facility] DEPARTMENT OF PATHOLOGY AND GENOMIC MEDICINE Specimen Blood Performing Organization Address City/[facility] [place] [address] PATHOLOGY AND [place] [facility] * Folate RBC (group test) (11/21/2017 11:50 AM) RBC folate 1,455 499 - 1,504 ng/mL [facility] DEPARTMENT OF PATHOLOGY AND GENOMIC MEDICINE Specimen Blood Performing Organization Address City/[facility] [place] [address] PATHOLOGY AND [facility] * Vitamin B12 level (11/21/2017 11:50 AM) Vitamin B12 >1600 (H) 211 - 946 pg/mL [facility] DEPARTMENT OF Comment: PATHOLOGY AND Significant overlap exists GENOMIC MEDICINE between normal and deficiency states. However, most patients with deficiencies will have Serum B12 <200 pg/mL. Specimen Serum Performing Organization Address [facility] [place] [address] PATHOLOGY AND [facility] * Comprehensive metabolic panel (11/21/2017 11:50 AM) Only the most recent of 2 results within the time period is included. Sodium 140 135 - 148 mEq/L [facility] DEPARTMENT OF PATHOLOGY AND GENOMIC MEDICINE Potassium 4.2 3.5 - 5.0 mEq/L [facility] DEPARTMENT OF PATHOLOGY AND GENOMIC MEDICINE Chloride 105 98 - 112 mEq/L [facility] DEPARTMENT OF PATHOLOGY AND GENOMIC MEDICINE CO2 26 24 - 31 mEq/L [facility] DEPARTMENT OF PATHOLOGY AND GENOMIC MEDICINE Anion gap 9@ANIO 7 - 15 mEq/L [facility] DEPARTMENT OF PATHOLOGY AND GENOMIC MEDICINE BUN 10 6 - 20 mg/dL [facility] DEPARTMENT OF PATHOLOGY AND GENOMIC MEDICINE Creatinine 0.8 0.5 - 0.9 mg/dL [facility] DEPARTMENT OF PATHOLOGY AND GENOMIC MEDICINE Glucose 91 65 - 99 mg/dL [facility] DEPARTMENT OF PATHOLOGY AND GENOMIC MEDICINE Calcium 8.2 (L) 8.3 - 10.2 mg/dL [facility] DEPARTMENT OF PATHOLOGY AND GENOMIC MEDICINE Protein 5.4 (L) 6.3 - 8.3 g/dL [facility] DEPARTMENT OF Comment: PATHOLOGY AND [place] GENOMIC MEDICINE 4.6-7.0 g/dL 1 week 4.4-7.6 g/dL 7 months-1year 5.1-7.3 g/dL 1-2 years5.6-7 .5 g/dL >3 years6.0-8 .0 g/dL 18-150 6.3-8.3 g/dL Albumin 2.1 (L) 3.5 - 5.0 g/dL [facility] DEPARTMENT OF PATHOLOGY AND GENOMIC MEDICINE A/G ratio 0.6 (L) 0.7 - 3.8 [facility] DEPARTMENT OF PATHOLOGY AND GENOMIC MEDICINE Alkaline phosphatase 102 35 - 104 U/L [facility] DEPARTMENT OF PATHOLOGY AND GENOMIC MEDICINE AST 39 (H) 10 - 35 U/L [facility] DEPARTMENT OF PATHOLOGY AND GENOMIC MEDICINE ALT 25 5 - 50 U/L [facility] DEPARTMENT OF PATHOLOGY AND GENOMIC MEDICINE Total bilirubin 0.3 0.0 - 1.2 mg/dL [facility] DEPARTMENT OF PATHOLOGY AND GENOMIC MEDICINE Specimen Plasma specimen Performing Organization Address City/State/Zipcode Phone Number [facility] DEPARTMENT OF [address] [place] [address] PATHOLOGY AND GENOMIC MEDICINE * Hemoglobin A1c (11/14/2017 10:25 AM) Hemoglobin A1C 4.1 4.0 - 5.6 % [facility] DEPARTMENT OF Comment: PATHOLOGY AND HbA1c [...] Performed At ADD ON PER NURSE KENISHAO11/14/201710:25 [facility] DEPARTMENT OF ?Specimen must be placed on ice and delivered immediately to PATHOLOGY AND ?the Core Laboratory. GENOMIC MEDICINE ?Specimen must be received in the laboratory within 2 hours of ?collection. ?Specimen Source->Urine Performing Organization Address [facility] [place] [address] PATHOLOGY AND GENOMIC MEDICINE * ECG 12 lead (11/13/2017 11:04 PM) Ventricular rate 89 [facility] Atrial rate 89 [facility] VT interval 146 [facility] QRSD interval 76 [facility] MUSE QT interval 342 [facility] QTC interval 416 [facility] M[facility] P axis 1 19 [facility] MUSE QRS axis 1 44 [facility] T wave axis 16 [facility] EKG impression Normal sinus rhythm-Low [facility] voltage QRS-Borderline ECG-No previous ECGs available- Performing Organization Address [facility] [place] [address] * Thyroid stimulating hormone (11/13/2017 10:50 PM) TSH 3.57 0.27 - 4.20 uIU/mL [facility] DEPARTMENT OF PATHOLOGY AND GENOMIC MEDICINE Specimen Plasma specimen Performing Organization Address [facility] [place] [address] PATHOLOGY AND [facility] * T4, free (11/13/2017 10:50 PM) T4, free 1.3 0.9 - 1.7 ng/dL [facility] DEPARTMENT OF PATHOLOGY AND GENOMIC MEDICINE Specimen Plasma specimen Performing Organization Address [facility] [place] [address] PATHOLOGY AND [facility] MEDICINE * Phosphorus level (11/13/2017 10:50 PM) Phosphorus 3.2 2.4 - 4.5 mg/dL [facility] DEPARTMENT OF PATHOLOGY AND GENOMIC MEDICINE Specimen Plasma specimen Performing Organization Address [facility] [place] [address] PATHOLOGY AND [facility] MEDIC[facility] * Magnesium level (11/13/2017 10:50 PM) Magnesium 1.5 (L) 1.6 - 2.6 mg/dL [facility] DEPARTMENT OF PATHOLOGY AND GENOMIC MEDICINE Specimen Plasma specimen Performing Organization Address [facility] Phone Number [facility] [place] [address] PATHOLOGY AND GENOMIC MEDICINE * Lactic acid level (11/13/2017 10:50 PM) Lactic acid 1.1 0.5 - 2.2 mmol/L [facility] DEPARTMENT OF PATHOLOGY AND GENOMIC MEDICINE Specimen Plasma specimen Performing Organization Address [facility] Phone Number [facility] [place] [address] PATHOLOGY AND GENOMIC MEDICINE * Alcohol level, blood (11/13/2017 10:50 PM) Alcohol None Detected mg/dL [facility] DEPARTMENT OF Comment: PATHOLOGY AND Normal GENOMIC MEDICINE None Detected Legal Intoxication in [place]80 mg/dL (0.08%) - Whole Blood Toxic Concentration 200 mg/dL (0.2%) Potentially Fatal3 50 - 500 mg/dL (0.35 - 0.5%) Alcohol percent None Detected % [facility] DEPARTMENT OF PATHOLOGY AND GENOMIC MEDICINE Specimen Plasma specimen Performing Organization Address [facility] Phone Number [facility] [place] [address] PATHOLOGY AND GENOMIC MEDICINE * Acetaminophen level (11/13/2017 10:50 PM) Acetaminophen level <15.0 10.0 - 30.0 ug/mL [facility] DEPARTMENT OF Comment: PATHOLOGY AND Therapeutic GENOMIC MEDICINE 10-30 ug/mL Possible Toxicity 150-200 ug/mL Probable Toxicity >200 ug/mL Specimen Plasma specimen Performing Organization Address [facility] Phone Number [facility] [place] [address] PATHOLOGY AND GENOMIC MEDICINE * Salicylate level (11/13/2017 10:50 PM) Salicylate <3.0 3.0 - 30.0 mg/dL [facility] DEPARTMENT OF PATHOLOGY AND GENOMIC MEDICINE Specimen Plasma specimen Performing Organization Address [facility] Phone Number [facility] [place] [address] PATHOLOGY AND GENOMIC MEDICINE * Lipid panel (11/13/2017 10:50 PM) Cholesterol 116 <200 mg/dL [facility] DEPARTMENT OF PATHOLOGY AND GENOMIC MEDICINE Triglycerides 90 <150 mg/dL [facility] DEPARTMENT OF PATHOLOGY AND GENOMIC MEDICINE HDL cholesterol 61 >40 mg/dL [facility] DEPARTMENT OF PATHOLOGY AND GENOMIC MEDICINE LDL cholesterol 29Comment: Result obtained by <100 mg/dL [facility] DEPARTMENT OF direct LDL measurement PATHOLOGY AND GENOMIC MEDICINE Lipid panel SeeBelow [facility] DEPARTMENT OF interpretation Comment: PATHOLOGY AND [...] Performed At ADD ON PER NURSE SHIRA11/14/201710:25 [facility] DEPARTMENT OF ?Specimen must be placed on ice and delivered immediately to PATHOLOGY AND ?the Core Laboratory. GENOMIC MEDICINE ?Specimen must be received in the laboratory within 2 hours of ?collection. ?Specimen Source->Urine Performing Organization Address City/[facility]/Zipcode Phone Number [facility] DEPARTMENT OF [address] [place] [address] PATHOLOGY AND GENOMIC MEDICINE * Urine culture (11/13/2017 10:28 PM) Urine culture SEE COMMENTComment: [facility] DEPARTMENT OF Bacteriuria screen negative. PATHOLOGY AND GENOMIC MEDICINE Performing Organization Address City/[facility]/Zipcode Phone Number [facility] DEPARTMENT OF [address] [place] [address] PATHOLOGY AND GENOMIC MEDICINE * Urinalysis screen and microscopy, with reflex to culture (11/13/2017 10:23 PM) Specimen site Clean catch [facility] DEPARTMENT OF PATHOLOGY AND GENOMIC MEDICINE Color, UA Yellow [facility] DEPARTMENT OF PATHOLOGY AND GENOMIC MEDICINE Appearance, UA Clear [facility] DEPARTMENT OF PATHOLOGY AND GENOMIC MEDICINE Specific gravity, UA 1.012 1.001 - 1.035 [facility] DEPARTMENT OF PATHOLOGY AND GENOMIC MEDICINE pH, UA 6.0 5.0 - 8.5 [facility] DEPARTMENT OF PATHOLOGY AND GENOMIC MEDICINE Protein, UA Negative Negative [facility] DEPARTMENT OF PATHOLOGY AND GENOMIC MEDICINE Glucose, UA Negative Negative [facility] DEPARTMENT OF PATHOLOGY AND GENOMIC MEDICINE Ketones, UA Negative Negative [facility] DEPARTMENT OF PATHOLOGY AND GENOMIC MEDICINE Bilirubin, UA Negative Negative [facility] DEPARTMENT OF PATHOLOGY AND GENOMIC MEDICINE Blood, UA Negative Negative [facility] DEPARTMENT OF PATHOLOGY AND GENOMIC MEDICINE Nitrite, UA Negative Negative [facility] DEPARTMENT OF PATHOLOGY AND GENOMIC MEDICINE Urobilinogen, UA 2.0 (A) <2.0 [facility] DEPARTMENT OF PATHOLOGY AND GENOMIC MEDICINE Leukocyte esterase, UA Negative Negative [facility] DEPARTMENT OF PATHOLOGY AND GENOMIC MEDICINE Epithelial cells, UA <1 /HPF [facility] DEPARTMENT OF PATHOLOGY AND GENOMIC MEDICINE WBC, UA 2 0 - 4 /HPF [facility] DEPARTMENT OF PATHOLOGY AND GENOMIC MEDICINE RBC, UA <1 0 - 5 /HPF [facility] DEPARTMENT OF PATHOLOGY AND GENOMIC MEDICINE Bacteria, UA Few None seen [facility] DEPARTMENT OF PATHOLOGY AND GENOMIC MEDICINE Yeast, UA None seen [facility] DEPARTMENT OF PATHOLOGY AND GENOMIC MEDICINE Yeast with pseudohyphae, None seen [facility] DE[facility]MENT OF UA PATHOLOGY AND GENOMIC MEDICINE Calcium oxalate crystals, Few [facility] DE[facility]MENT OF UA PATHOLOGY AND GENOMIC MEDICINE Specimen Urine Performing Organization Address City/State/Zipcode Phone Number [facility] DEPARTMENT OF [address] [place] [phone] PATHOLOGY AND GENOMIC MEDICINE * Urine drugs of abuse screen (11/13/2017 10:23 PM) Amphetamine screen, urine Negative [facility] DEPARTMENT OF PATHOLOGY AND GENOMIC MEDICINE Barbiturate screen, urine Negative [facility] DEPARTMENT OF PATHOLOGY AND GENOMIC MEDICINE Benzodiazepine screen, Negative [facility] DEPARTMENT OF urine PATHOLOGY AND GENOMIC MEDICINE Cannabinoid screen, urine Negative [facility] DEPARTMENT OF PATHOLOGY AND GENOMIC MEDICINE Cocaine screen, urine Negative [facility] DEPARTMENT OF PATHOLOGY AND GENOMIC MEDICINE Methadone metabolite Negative [facility] DEPARTMENT OF (EDDP), urine PATHOLOGY AND GENOMIC MEDICINE Opiates screen, urine Negative [facility] DEPARTMENT OF PATHOLOGY AND GENOMIC MEDICINE Oxycodone screen, urine Positive (A) [facility] DEPARTMENT OF PATHOLOGY AND GENOMIC MEDICINE Phencyclidine screen, Negative [facility] DEPARTMENT OF urine PATHOLOGY AND GENOMIC MEDICINE Tricyclic screen, urine Negative [facility] DEPARTMENT OF Comment: PATHOLOGY AND Drug [...] Urine Performing Organization Address City/State/Zipcode Phone Number [facility] DEPARTMENT OF [address] [place] [address] PATHOLOGY AND GENOMIC MEDICINE after 05/09/2017 Insurance Payer Benefit Subscriber ID Type Phone Address Plan / Group BCBS BCBS xxxxxxxxxxxx PPO CHOICE PPO/[place] [address]
[2018-05-10] MEDS: LEVOFLOXACIN 500MG/D5W 100ML 100 ML IV SCH (16:59)
[2018-05-10] MEDS ORDERED: PEPCID20 MG PO (17:32)
[2018-05-10] MEDS ORDERED: PANTOPRAZOLE SO40 MG PO (17:32)
[2018-05-10] MEDS ORDERED: SUBOXONE 2 MG-1 EAC2 ×2 (17:32→22:29)
[2018-05-10] MEDS ORDERED: RISPERIDONE1 MG PO (17:32)
[2018-05-10] MEDS ORDERED: ZYRTEC10 M3 PO (17:32)
[2018-05-10] MEDS ORDERED: LYRICA200 MG PO (17:32)
[2018-05-10] MEDS ORDERED: CALCIUM CITRAT200 MG PO (17:32)
[2018-05-10] MEDS ORDERED: BIOTIN1 MG PO (17:32)
[2018-05-10] MEDS ORDERED: FERROUS SULFAT325 MG PO (17:32)
[2018-05-10] MEDS ORDERED: LEVOTHYROXINE50 MCG PO (17:32)
[2018-05-10] MEDS ORDERED: FOLIC ACID1 MG PO (17:32)
[2018-05-10] MEDS ORDERED: MELATONIN3 MG PO (17:32)
[2018-05-10] MEDS ORDERED: [UNRECOGNIZED DRUG - OTHER] PO (17:32)
[2018-05-10] MEDS ORDERED: HYDROXYZINE HCL25 MG PO (17:32)
[2018-05-10 19:03] VITALS: BP 106/76
[2018-05-10 20:00] VITALS: BP 97/66
--- NOTE | 2018-05-10 21:46 | Consultation ---
DATE OF CONSULTATION: May 10, 2018 UROLOGY CONSULTATION REASON FOR CONSULTATION: Ureteral calculus. HISTORY OF PRESENT ILLNESS: Mrs. Silva is a 38-year-old female in her normal state of health until she began experiencing sharp, severe right-sided flank pain. This is complicated by the fact the patient has chronic back pain and fibromyalgia. She denied dysuria, denied gross hematuria. Has been told she has blood in her urine. She denied fevers or chills. Denied nausea and no vomiting. PAST MEDICAL HISTORY: As above. Chronic back pain, fibromyalgia on Suboxone. MEDICATIONS: Please see MAR. ALLERGIES: PENICILLIN, GUAIFENESIN, LATEX, METOCLOPRAMIDE, PROCHLORPERAZINE. SOCIAL HISTORY: Denied smoking or drinking. FAMILY HISTORY: Denied urologic stones or malignancies. REVIEW OF SYSTEMS: Noncontributory other than problems mentioned above for 12-organ systems. PHYSICAL EXAMINATION GENERAL: A middle-aged female currently in no acute distress. VITALS: Currently, she is afebrile with stable vital signs. HEENT: Sclerae anicteric. NECK: Supple. BACK: Without costovertebral angle tenderness bilaterally. ABDOMEN: Soft. It is nontender. It is nondistended. There is no palpable mass, no palpable hernias, no palpable lymphadenopathy. : Normal female external genitalia. EXTREMITIES: Without edema. PSYCH: Alert, mood appropriate. SKIN: Intact. Normal color. PERTINENT LABORATORY DATA: CT scan with a 5-mm right ureteral calculus. Right hydronephrosis. Hemoglobin 13, hematocrit 41, platelet count 176,00, white cell count 8410. Sodium 142, potassium 3.5, chloride 103, bicarb 26, BUN 16, creatinine 1.3. Glucose 66. Urinalysis 11 to 10 reds, 11 to 20 whites. IMPRESSIONS 1. Right ureteral calculus. 2. Right hydronephrosis. 3. Microscopic hematuria. 4. Urinary tract infection. 5. Acute renal failure. PLAN: Will aggressively hydrate the patient for a trial of passage. Should this fail, the patient need stenting. Thank you for allowing us to participate in the care of your patient. Will be happy to follow along with you. Job#: [id number] CQ
[2018-05-10] MEDS ORDERED: MELATONIN 5 MG TABLET PO SCH (22:00)
[2018-05-10] MEDS: SODIUM CHLORIDE 0.9% 1000ML 1,000 ML IV SCH (22:27)
[2018-05-10] MEDS ORDERED: PROZAC20 MG PO (22:53)
[2018-05-11] VITALS (9 sets, daily range): BP systolic 88–110; BP diastolic 58–70
[2018-05-11] MEDS: SODIUM CHLORIDE 0.9% 1000ML 1,000 ML IV SCH ×3 (00:55→11:33)
[2018-05-11 05:10] LABS: BASOPHILS % 0.3 % (0.0-1.0); EOSINOPHILS % 0.7 % (0.0-6.0); HEMATOCRIT 29.3 % (34.2-44.1); HEMOGLOBIN 9.8 g/dL (12.0-16.0); LYMPHOCYTES # (AUTO) 2.4 (1.0-3.2); LYMPHOCYTES % 40.6 % (18.0-39.1); MEAN CORPUSCULAR HEMOGLOBIN 29.3 pg (28-32); MEAN CORPUSCULAR HGB CONC 33.4 g/dL (31-35); MEAN CORPUSCULAR VOLUME 87.7 fL (81-99); MONOCYTES # (AUTO) 0.4 (0.2-0.8); MONOCYTES % 6.7 % (4.4-11.3); NEUTROPHILS # (AUTO) 3.1 (2.1-6.9); NEUTROPHILS % 51.5 % (38.7-80.0); PLATELET COUNT 118 x10e3/uL (140-360); RED BLOOD COUNT 3.34 x10e6/uL (3.6-5.1); RED CELL DISTRIBUTION WIDTH 14.6 % (11.7-14.4)
[2018-05-11 05:28] LABS: ALANINE AMINOTRANSFERASE 33 IU/L (0-55); ALBUMIN 1.4 g/dL (3.5-5.0); ALBUMIN/GLOBULIN RATIO 0.7 (0.8-2.0); ALKALINE PHOSPHATASE 76 IU/L (40-150); ANION GAP 9.8 mmol/L (8-16); BLOOD UREA NITROGEN 11 mg/dL (7-26); BUN/CREATININE RATIO 14 (6-25); CARBON DIOXIDE 25 mmol/L (22-29); CHLORIDE 107 mmol/L (98-107); CREATININE, SERUM 0.78 mg/dL (0.57-1.11); EST GLOMERULAR FILTRATION RATE > 60 ML/MIN (60-); GLUCOSE 72 mg/dL (74-118); POTASSIUM 3.8 mmol/L (3.5-5.1); SODIUM 138 mmol/L (136-145)
[2018-05-11 05:30] LABS: CALCIUM 7.4 mg/dL (8.4-10.2)
[2018-05-11] MEDS: LEVOTHYROXINE SODIUM 50 MCG TAB PO SCH (05:35)
[2018-05-11] MEDS: FAMOTIDINE 20 MG TAB PO SCH ×2 (08:21→17:00)
[2018-05-11] MEDS: PREGABALIN 50 MG CAP PO SCH ×3 (09:00→20:57)
[2018-05-11] MEDS ORDERED: NON-FORMULARY MEDICATION (Biotin 1 MG) PO SCH (09:00)
[2018-05-11] MEDS: HYDROXYZINE HCL 25 MG TAB PO SCH ×3 (09:00→20:57)
[2018-05-11] MEDS: FERROUS SULFATE 325 MG TAB PO SCH (09:00)
[2018-05-11] MEDS: FLUOXETINE HCL 20 MG CAP PO SCH (09:00)
[2018-05-11] MEDS: MULTIVITAMINS/MINERALS TAB PO SCH (09:00)
[2018-05-11] MEDS: LORATADINE 10 MG TAB PEG SCH (09:00)
[2018-05-11] MEDS ORDERED: RISPERIDONE 1 MG TAB PO SCH (09:00)
[2018-05-11] MEDS: FOLIC ACID 1 MG TAB PO SCH (09:00)
[2018-05-11] MEDS: BIOTIN 1 MG PO SCH (09:00)
[2018-05-11] MEDS: CALCIUM CITRATE 200 MG PO SCH (09:00)
[2018-05-11] MEDS ORDERED: PREGABALIN 200 MG PO SCH (09:00)
[2018-05-11] MEDS ORDERED: CALCIUM CITRATE 200 MG PO SCH (09:00)
[2018-05-11] MEDS ORDERED: [UNRECOGNIZED DRUG - OTHER] PO SCH (09:00)
--- NOTE | 2018-05-11 11:34 | Diagnostic Imaging Report ---
PROCEDURE:X-RAY ABDOMEN - KUB COMPARISON:CT scan of the abdomen and pelvis dated 05/10/2018. INDICATIONS:ABDOMINAL PAIN, URETERAL OBSTRUCTION FINDINGS: There is a large amount of small bowel gas. Large amount of fecal material is also present clips in the upper abdomen both the right and left side are present. There is also an IUD overlying the pelvis. Pelvic calcifications appear compatible with phleboliths. Faint calcification in the right hemipelvis may represent the distal ureteral stone previously described. There are no masses. There is no evidence of free air. No acute osseous abnormalities are present. CONCLUSION: 1. Large amount of small bowel gas and fecal material within the colon. 2. Right pelvic calcification likely represents the known distal ureteral stone. Randell Olivera D.O. Dictated by: Randell Olivera D.O. on 05/11/2018 at 11:43 Electronically approved by: Randell Olivera D.O. on 05/11/2018 at 11:43
--- NOTE | 2018-05-11 11:43 | History and Physical ---
CHIEF COMPLAINT: Nausea, vomiting, and lower abdominal discomfort. HISTORY OF PRESENT ILLNESS: Ms. Silva is a 38-year-old female. She was having nausea, vomiting and abdominal cramping. She has history of severe anorexia. She was just discharged from a psychiatric facility eating disorder unit. She has history of narcotic dependence and benzodiazepine dependence as well, which she is trying to fight as well. She is on Suboxone. She reports that recently she saw Dr. Patiño for sinus problems and was advised the patient needs a PEG tube because she has lost a lot of weight. She got in touch with Dr. Jean Santos and was able to see him, and he sent the patient over. The patient is extremely weak, denying any complaints of chest pain. However, having nausea and vomiting. REVIEW OF SYSTEMS GENERAL: Denies any fever or chills. HEAD: Denies any head trauma. ENT: Denies any earaches. CVS: Denies any chest pain. RESPIRATORY: Denies any shortness of breath. OTHER: The rest of the review of systems are negative except as in HPI. PAST MEDICAL HISTORY: Fibromyalgia, chronic back pain, hypothyroidism, bipolar disorder, obsessive-compulsive disorder. SURGICAL HISTORY: Gastric bypass surgery in 2016. Removal of ovarian cyst surgery. FAMILY AND SOCIAL HISTORY: She does not smoke and does not drink. She is going through a divorce. She has 1 child. She used to work as a medic. PHYSICAL EXAMINATION VITAL SIGNS: Temperature 97.7, pulse of 62, blood pressure 92/65. GENERAL APPEARANCE: She is very weak, cachectic female. She is awake and alert, following commands, responding to questions appropriately. HEENT: Head is atraumatic, normocephalic. NECK: Supple. CHEST: Clear to auscultation bilaterally. No wheezing. No crackles. HEART: S1, S2 audible. ABDOMEN: Soft, nontender. EXTREMITIES: No clubbing, cyanosis or edema. NEUROLOGIC: Awake and alert. No focal neurological deficit. LABS: White count of 5.93, hemoglobin 9.8. Hemoglobin was 13.7 yesterday. Platelets 118. Chemistry: Sodium 138, potassium 3.8, chloride 107, BUN 11, creatinine 0.7. AST and ALT 73 and 53. Creatinine was 1.30 yesterday and is 0.78. ASSESSMENT/PLAN: Ms. Silva is a 38-year-old female with intractable nausea and vomiting, status post history of anorexia nervosa, recently discharged from eating disorder center. She spent 12 weeks there. CURRENT PROBLEMS 1. Acute kidney injury due to dehydration. Improved now with IV hydration. Will reduce the IV fluids to 100 mL an hour. 2. Anemia, could be dilutional. Will follow closely. If she keeps on dropping the hemoglobin, then we will consider transfusion and anemia workup. 3. Gastroenterology consultation, possible percutaneous endoscopic gastrostomy tube placement as patient is unable to keep anything down. 4. CT of the abdomen and pelvis done in the emergency room showed evidence of a 5-mm distal ureteral calculus and hydroureter nephrosis. Dr. Barnett and Dr. Munguia have been consulted, and the patient will possibly be getting a stent. 5. Chronic narcotic dependence. Patient is on Suboxone. Will consult pain management for further recommendations. 6. History of bipolar disorder and obsessive-compulsive disorder with anorexia nervosa. Psychiatric consult will be done. Job#: [id number]
[2018-05-11] MEDS ORDERED: PANTOPRAZOLE 40 MG 10ML VIAL IV SCH (12:00)
[2018-05-11] MEDS ORDERED: IOPAMIDOL 610MG/1ML 300 MG/ML VIAL IV ONE (17:02)
[2018-05-11] MEDS ORDERED: DEXAMETHASONE SOD PHOS INJ 4 MG/ML VIAL ONE (17:57)
[2018-05-11] MEDS ORDERED: LIDOCAINE HCL 2% LOCAL INJ 5 ML SDV VIAL INJ ONE (17:57)
[2018-05-11] MEDS ORDERED: PROPOFOL IV EMULSION 10 MG/ML 20 ML VIAL ONE (17:57)
[2018-05-11] MEDS ORDERED: ONDANSETRON HCL INJ 2 MG/ML VIAL ONE (17:57)
[2018-05-11] MEDS ORDERED: SEVOFLURANE INHAL SOLN 250 ML PEN BTL ONE (17:57)
[2018-05-11] MEDS ORDERED: MIDAZOLAM HCL 2 MG/2 ML VIAL ONE (18:53)
--- NOTE | 2018-05-11 20:20 | Operative Report ---
DATE OF PROCEDURE: May 11, 2018 PREOPERATIVE DIAGNOSES 1. Microscopic hematuria. 2. Hydronephrosis. POSTOPERATIVE DIAGNOSES: 1. Microscopic hematuria. 2. Hydronephrosis. 3. Urethral stricture disease, female. OPERATION PERFORMED: 1. Cystoscopy with ureteral calibration and dilation (entirely separate procedure for urethral stricture disease). 2. Cystourethroscopy with left ureteral catheterization and left retrograde pyelogram (entirely separate procedure for microscopic hematuria). 3. Cystourethroscopy with insertion of a right STENT (entirely separate procedure for diagnosis of right hydronephrosis). 4. Supervision of fluoroscopy. 5. Interpretation of retrograde pyelography. ANESTHESIA: General. ESTIMATED BLOOD LOSS: Minimal. COMPLICATIONS: None. INDICATIONS FOR PROCEDURE: Ms. Silva is a very pleasant, 38-year-old female admitted to the hospital with intractable renal colic. She was found to have a right ureteral calculus and infection. She and I had a long discussion in regard to the alternatives, the risks and the benefits including doing nothing, cystoscopy, retrograde pyelograms, stent placement, nephrostomy. She voiced understanding of the options, alternatives, risks and benefits, and she elected to proceed. PROCEDURE IN DETAIL: After informed consent was obtained, the patient was taken to the operative suite. She was placed supine on the operating table. She underwent general anesthesia by the anesthesia service. She was placed in the dorsal lithotomy position and sterilely prepped and draped in the standard fashion for cystoscopy. A 22.5-Serbian cystoscope was inserted per urethra, and a normal urethra was noted. Panendoscopy revealed no tumors. No stones. Both ureteral orifices were within normal anatomic location and position and seen to efflux clear urine. Bilateral retrograde pyelograms were performed revealing an obstructing right 5 mm ureteral calculus and proximal hydronephrosis. Right ureteral stent was deployed with coil in the renal pelvis and coil in the bladder. Attempt to made to insert the cystoscope which failed. The urethra was calibrated to 14-Serbian and dilated to 24-Serbian. The bladder was drained. The patient was awakened from anesthesia and transported to the recovery room in excellent condition. SUPERVISION OF FLUOROSCOPY AND INTERPRETATION OF RETROGRADE PYELOGRAPHY: I was present throughout the entire procedure, and I supervised the use of fluoroscopy. There was no radiologist present during this procedure at any time. Attention was turned toward the left and right ureteral orifices, which were catheterized with an 5-Serbian cone-tipped catheter. Retrograde pyelogram was performed revealing left side delicate ureters, delicate pelvocaliceal systems, and right side 5 mm distal ureteral calculus and proximal hydronephrosis. Postop views of the right ureteral stent was in good position. Job#: [id number] GH MTDD
[2018-05-11] MEDS: NALOXONE SL SCH (21:00)
[2018-05-11] MEDS ORDERED: MIRTAZAPINE 15 MG TAB PO SCH (21:00)
[2018-05-11] MEDS ORDERED: NON-FORMULARY MEDICATION SL SCH (21:00)
[2018-05-11] MEDS ORDERED: FAMOTIDINE 20 MG TAB PO SCH (21:00)
[2018-05-11] MEDS: BUPRENORPHINE SL SCH (21:00)
[2018-05-11] MEDS: RISPERIDONE 1 MG TAB PO SCH (21:45)
[2018-05-11] MEDS ORDERED: PANTOPRAZOLE 40 MG 10ML VIAL IV STA (23:17)
[2018-05-12] VITALS (9 sets, daily range): BP systolic 70–99; BP diastolic 40–72
[2018-05-12] MEDS: PANTOPRAZOL 40MG/SOD CHL 0.9% 50 ML IV SCH ×5 (00:37→21:11)
[2018-05-12] MEDS: METOCLOPRAMIDE HCL 10 MG/2ML VIAL IV SCH ×5 (00:37→23:35)
[2018-05-12] MEDS: SODIUM CHLORIDE 0.9% 1000ML 1,000 ML IV SCH ×3 (01:45→15:51)
[2018-05-12] MEDS: LEVOTHYROXINE SODIUM 50 MCG TAB PO SCH (04:40)
[2018-05-12 06:22] LABS: IRON 72 ug/dL (50-170); TRANSFERRIN < 70 mg/dL (180-382)
[2018-05-12 06:25] LABS: FERRITIN 704.67 ng/mL (4.63-204.00)
[2018-05-12 06:41] LABS: FOLATE 17.6 ng/mL (7.0-15.4)
--- NOTE | 2018-05-12 07:46 | Consultation ---
DATE OF CONSULTATION: May 11, 2018 PSYCHIATRIC CONSULTATION The patient was evaluated and events noted. REASON FOR CONSULTATION: Evaluate the patient's anorexia. HISTORY OF PRESENT ILLNESS: The patient is a 38-year-old female admitted to the hospital for abdominal pain and anorexia. Psychiatric consultation is called to evaluate the patient's mood and anorexia. As per medical record, the patient came into the hospital with complaint of nausea, vomiting and lower abdominal discomfort. She has a history of severe anorexia. She was just discharged from a psychiatric facility for eating disorder. She has a history of narcotic dependence and benzo dependence. She is on Suboxone. The patient had a gastric bypass in 2015. She has a history of bipolar disorder and obsessive-compulsive disorder. Upon evaluation today, the patient is found to be in the room. She is very thin appearing. She is alert, awake and oriented to situation. The patient reports that she had gastric bypass surgery in the past after which she lost weight. However, she started to have symptoms of nausea, vomiting and bloating, which since then has prevented her from eating and gaining weight. She at one point was 273 and now is 109 as per the patient. The patient states that she recently came out of a 12-week eating recovery program. She went home for the last 2 weeks, but has been having poor oral intake. She is now here for GI problems. The patient claims that she eats once a day. She also reports feeling very depressed and anxious due to her medical issues. Also, she is going through a divorce process due to having an affair. The patient reports poor appetite and poor sleep. She denies any suicidal or homicidal ideations. She denies any passive wish. She denies any hallucinations. The patient denies any bulimia. The patient admits to having a history of opiates and benzo abuse, but has been clean since January. She is motivated to get better and wants to increase her weight. However, due to GI discomfort such as nausea, vomiting and bloating, is preventing her from wanting to eat. She wants to get better. She does not want to as she does have a young child at home, which she wants to live for. She claims that before the bypass surgery she was eating and did not have any issues with eating disorder. The patient claims that she was getting Zyprexa in the past, but she did not like it due to blurred vision. She also was given Seroquel and also did not like it. PAST PSYCHIATRIC HISTORY: The patient reports a history of bipolar, depressed, OCD, and anxiety for 8 years. She had never attempted suicide in the past. Does not drink alcohol or use any drugs. Has a history of opiate and benzo abuse. FAMILY HISTORY: Her mother has bipolar. Some family members committed suicide. SOCIAL HISTORY: The patient currently lives alone. MENTAL STATUS EXAMINATION GENERAL: The patient is a young female that is thin. She is oriented to situation. Mood is depressed and anxious. Affect is congruent with mood. She denies any suicidal or homicidal ideation. She denies any hallucinations. Psychomotor is passive. No delusions elicited. No hallucinations. Denies suicidal or homicidal ideation. Insight and judgment are fair. Memory appears to be grossly intact. CURRENT MEDICATIONS 1. Protonix. 2. Famotidine. 3. Melatonin. 4. Levofloxacin. 5. Dextrose. 6. Ondansetron. 7. Multivitamins. 8. Pregabalin. 9. Ferrous sulfate. 10. Prozac. 11. Risperdal. 12. Levothyroxine. 13. Hydralazine. 14. Folic acid. 15. Ranitidine. 16. Promethazine. CURRENT LABS: WBC is 5.93, RBC 3.34, hemoglobin 9.6, hematocrit 29.3, and platelets 118,000. Sodium 138, potassium 3.8, chloride 107, CO2 25, BUN 11, creatinine 0.78, AST 44, ALT is 33. ASSESSMENT 1. Bipolar disorder. 2. Depressed. 3. History of obsessive-compulsive disorder. 4. Anxiety disorder, not otherwise specified. PLAN: Discontinue melatonin. Change Risperdal from 1.5 mg daily to at bedtime. Continue Prozac as per the patient's request. Remeron 7.5 mg p.o. at bedtime. Monitor for mood. Monitor for appetite. Supportive therapy. Thank you for the consultation. DICTATED BY SHANNON RAJPUT Job#: [id number] ELÍSA
[2018-05-12] MEDS: BIOTIN 1 MG PO SCH (09:00)
[2018-05-12] MEDS: NALOXONE SL SCH ×3 (09:00→21:00)
[2018-05-12] MEDS: CALCIUM CITRATE 200 MG PO SCH (09:00)
[2018-05-12] MEDS: HYDROXYZINE HCL 25 MG TAB PO SCH (09:00)
[2018-05-12] MEDS ORDERED: RISPERIDONE 1 MG TAB PO SCH ×2 (09:00→21:00)
[2018-05-12] MEDS: BUPRENORPHINE SL SCH ×3 (09:00→21:00)
--- NOTE | 2018-05-12 14:30 | Progress Note ---
DATE: May 12, 2018 PSYCHIATRIC PROGRESS NOTE The patient was evaluated and events noted. The patient is in the room with her mom. She is alert, awake, and oriented to situation. She reports feeling the same. The patient is concerned that she has not been taking her Prozac as she has been n.p.o. She reports broken sleep. Appetite continues to be poor. She denies any suicidal ideation. Denies any hallucinations. Upon review of her vital signs, she appears to be very hypotensive. Last night at midnight, it was 70/40. Due to concern of her blood pressure, we will adjust medications. Discussed medications with her. Regarding Remeron, she agrees for it to be increased to help with the appetite, mood, and sleep. ASSESSMENT: Bipolar disorder, depressed; history of obsessive-compulsive disorder; anxiety disorder. PLAN 1. Continue Risperdal 1.5 mg p.o. nightly. 2. Change Atarax from 25 mg p.o. 3 times a day to 25 mg p.o. 3 times a day as needed due to low blood pressure. 3. Increase Remeron from 7.5 mg p.o. nightly to 15 mg p.o. nightly. 4. Monitor for mood. 5. Supportive therapy. 6. Continue Prozac 40 mg p.o. daily. Dictated by: SHANNON Hogan Job#: [id number]
--- NOTE | 2018-05-12 15:04 | Consultation ---
DATE OF CONSULTATION: May 12, 2018 REFERRING PHYSICIAN: Dr. Santos. CHIEF COMPLAINT: Nausea and vomiting, significant weight loss. HISTORY OF PRESENT ILLNESS: Ms. Silva is a 38-year-old female who underwent a laparoscopic Emerson-en-Y gastric bypass in 2013. At that time, her weight was in the 270s range. She states that she lost weight down to 150 and maintained that weight for a long period of time. In August of this year, the patient states that she developed severe anxiety disorder which caused her to lose her appetite, and since then she has been continuously losing weight is down to about a weight of 109 pounds, currently. She was diagnosed from a psychiatric facility with having an eating disorder and has a history of narcotic dependence as well as benzodiazepine dependence. I was asked to see the patient by Dr. Jean Santos in order to assess for potential reversal of her Emerson-en-Y gastric bypass. REVIEW OF SYSTEMS: GENERAL: Denies fevers or chills. HEAD: Denies head trauma. ENT: Denies earaches. CVS: Denies chest pain. RESPIRATORY: Denies shortness of breath. PAST MEDICAL HISTORY: Fibromyalgia, chronic back pain, hypothyroidism, bipolar disorder, obsessive compulsive disorder, unspecified eating disorder, anxiety disorder. PAST SURGICAL HISTORY: Status post gastric bypass surgery in 2013. Removal of ovarian cyst. FAMILY/SOCIAL HISTORY: She says she does not smoke and does not drink. She is going through a divorce. She has one child. She used to work as a medic. PHYSICAL EXAMINATION VITAL SIGNS: Stable, afebrile. GENERAL: Awake, alert and in no acute distress. ABDOMEN: Soft, nondistended. Incisions are well healed from previous laparoscopic operation. RESPIRATORY: No labored breathing. EXTREMITIES: No injuries identified. NEUROLOGIC: Awake, alert, no focal abnormalities. NECK: Supple. LABORATORY DATA: Hemoglobin 9.8, platelet count 118,000. ASSESSMENT 1. Anxiety disorder leading to weight loss. 2. Status post Emerson-en-Y gastric bypass. 3. Bipolar disorder. PLAN: The patient suffers from primary anxiety disorder which is leading to significant weight loss and loss of appetite. She feels though that she has made some progress recently with her treatment with the psychiatric evaluations. She is going to undergo an EGD with Dr. Santos today and will be assessed for a gastrostomy tube placement as she is unable to keep anything down. I did discuss in detail her options including continuing her psychiatric treatment, and then as a last ditch effort to potentially discuss reversal of her Emerson-en-Y gastric bypass. I do not think at this time that is a step that needs to be taken, although that is something that needs to be entertained for the future. I will have her see me in followup in clinic in about a week to discuss further options with her in more detail. I appreciate the consultation. Will continue to follow the patient. Job#: [id number] ARIELLE
[2018-05-12] MEDS: PREGABALIN 50 MG CAP PO SCH ×2 (16:32→23:47)
[2018-05-12] MEDS: MULTIVITAMINS/MINERALS TAB PO SCH (16:32)
[2018-05-12] MEDS: LEVOFLOXACIN 500MG/D5W 100ML 100 ML IV SCH (16:32)
[2018-05-12] MEDS: SUCRALFATE 1 GM/10 ML SUSP NG SCH ×2 (16:32→21:11)
[2018-05-12] MEDS: FOLIC ACID 1 MG TAB PO SCH (16:32)
[2018-05-12] MEDS: LORATADINE 10 MG TAB PEG SCH (16:32)
[2018-05-12] MEDS: FERROUS SULFATE 325 MG TAB PO SCH (16:32)
[2018-05-12] MEDS: FLUOXETINE HCL 20 MG CAP PO SCH (16:32)
[2018-05-12] MEDS: HYDROXYZINE HCL 25 MG TAB PO PRN ×2 (16:33→21:14)
--- NOTE | 2018-05-12 18:22 | Operative Report ---
DATE OF PROCEDURE: May 12, 2018 REFERRING PHYSICIAN: Dr. Saira Combs. PROCEDURE PERFORMED: Esophagogastroduodenoscopy with esophageal dilatation and biopsies. INDICATIONS FOR PROCEDURE: Dysphagia, nausea, excessive belching. MEDICATION: Patient was done under MAC. Please see anesthesiologist's note. PROCEDURE: With the patient in the left lateral decubitus position, the flexible fiberoptic Olympus gastroscope was introduced into the esophagus under direct visualization without any difficulty. There was some patchy erythema noted in the distal esophagus. The esophagus was then dilated to a size 52-Turkish [place]. The scope was then advanced with ease into the stomach, and patient appears to be status post Emerson-en-Y. Anastomosis was intact. The gastric cuff was somewhat inflamed, and biopsies were obtained. The enteric loop was patent. The scope was subsequently withdrawn. Patient tolerated procedure well. IMPRESSION: 1. Mild distal esophagitis. 2. Esophagus dilated to a size 52-Turkish Latham. 3. Status post Emerson-en-Y, patent. 4. Gastric stump biopsied. PLAN: Follow up histology. Continue on PPI therapy. Add Carafate 10 mL p.o. a.c. t.i.d. and nightly. Job#: [id number] cc:Jacek QURESHI MD
[2018-05-12] MEDS ORDERED: MIDAZOLAM HCL 2 MG/2 ML VIAL ONE (18:39)
[2018-05-12] MEDS ORDERED: FENTANYL CITRATE/PF 100MCG/2 ML INJ ONE (18:39)
[2018-05-12] MEDS ORDERED: PROPOFOL IV EMULSION 10 MG/ML 50 ML VIAL ONE (18:39)
[2018-05-12] MEDS ORDERED: MIRTAZAPINE 15 MG TAB PO SCH (21:00)
[2018-05-12] MEDS: RISPERIDONE 1 MG TAB PO SCH (21:11)
[2018-05-13] MEDS: PANTOPRAZOL 40MG/SOD CHL 0.9% 50 ML IV SCH (02:00)
[2018-05-13 04:00] VITALS: BP 86/61
[2018-05-13] MEDS: METOCLOPRAMIDE HCL 10 MG/2ML VIAL IV SCH (06:00)
[2018-05-13 06:15] VITALS: BP 104/76
[2018-05-13] MEDS: LEVOTHYROXINE SODIUM 50 MCG TAB PO SCH (06:19)
[2018-05-13 07:59] VITALS: BP 97/67
[2018-05-13] MEDS: BIOTIN 1 MG PO SCH (09:00)
[2018-05-13] MEDS: BUPRENORPHINE SL SCH (09:00)
[2018-05-13] MEDS: SUCRALFATE 1 GM/10 ML SUSP NG SCH (09:00)
[2018-05-13] MEDS: CALCIUM CITRATE 200 MG PO SCH (09:00)
[2018-05-13] MEDS: NALOXONE SL SCH (09:00)
[2018-05-13 09:17] VITALS: BP 97/67
[2018-05-13] MEDS: FOLIC ACID 1 MG TAB PO SCH (09:45)
[2018-05-13] MEDS: FERROUS SULFATE 325 MG TAB PO SCH (09:45)
[2018-05-13] MEDS: LORATADINE 10 MG TAB PEG SCH (09:45)
[2018-05-13] MEDS: PREGABALIN 50 MG CAP PO SCH (09:45)
[2018-05-13] MEDS: MULTIVITAMINS/MINERALS TAB PO SCH (09:45)
[2018-05-13] MEDS: FLUOXETINE HCL 20 MG CAP PO SCH (09:45)
[2018-05-13] MEDS ORDERED: REMERON15 M1 PO (10:38)
[2018-05-13] MEDS ORDERED: TYLENOL WITH C1 EACH PO (10:40)
[2018-05-13] MEDS ORDERED: OXYBUTYNIN CHLOR5 MG PO (10:40)
[2018-05-13 11:50] VITALS: BP_SYST 100; BP_SYST 139; BP_DIAS 62; BP_DIAS 65
--- NOTE | 2018-05-13 16:38 | Discharge Summary ---
FINAL DIAGNOSES 1. Anorexia nervosa. 2. Severe weight loss and protein-calorie malnutrition due to anorexia nervosa. 3. Hypothyroidism. 4. Obsessive compulsive disorder. 5. Nausea and vomiting. 6. Acute kidney injury due to dehydration. 7. Anemia. ADMISSION HISTORY AND HOSPITAL COURSE: Ms. Silva is a 38-year-old female with anorexia nervosa came in with nausea, vomiting, and dehydration. IV hydration was done. GI, psych, bariatric surgery, and urology saw the patient as patient had ureteral stone. Patient underwent stent placement by urology for ureteral stone. Dr. Jean Santos evaluated the patient, dilated the esophagus, and treated the distal esophagitis. Psychiatry recommended to start the patient on Remeron. She has all the medications to take at home except Remeron and Carafate, which I have given the prescription. She will follow up with her primary care physician, follow up with GI and bariatric surgery as an outpatient. She has chronic pain and was on Suboxone. She has history of narcotic dependence. Dr. Chamorro evaluated the patient and recommended to continue her home medications. SIMON OJEDA MD Job#: [id number] CQ
== END 2018-05-13 12:05 | disposition home or self-care (01) | DRG 660 ==
LOC: ER 12:08 → ERHOLD 16:06 → MED/SURG 18:29
PROVIDERS: ADMIT Internal Medicine; ATTEND Internal Medicine
PROC: 0T768DZ Dilation of Right Ureter with Intraluminal Device, Via Natural or Artificial Opening Endoscopic (ICD-10-PCS; principal; 2018-05-11 16:30)
PROC: 0DB68ZX Excision of Stomach, Via Natural or Artificial Opening Endoscopic, Diagnostic (ICD-10-PCS; 2018-05-12)
PROC: 0D758DZ Dilation of Esophagus with Intraluminal Device, Via Natural or Artificial Opening Endoscopic (ICD-10-PCS; 2018-05-12 14:08)
DX: N13.6 Pyonephrosis (principal); F11.20 Opioid dependence, uncomplicated; E44.0 Moderate protein-calorie malnutrition; Z68.1 Body mass index [BMI] 19.9 or less, adult; F50.00 Anorexia nervosa, unspecified; R11.2 Nausea with vomiting, unspecified; N17.9 Acute kidney failure, unspecified; D64.9 Anemia, unspecified; G89.4 Chronic pain syndrome; M79.7 Fibromyalgia; Z88.0 Allergy status to penicillin; Z88.8 Allergy status to other drugs, medicaments and biological substances; Z91.040 Latex allergy status; R31.29 Other microscopic hematuria; Z98.84 Bariatric surgery status; F31.9 Bipolar disorder, unspecified; F32.9 Major depressive disorder, single episode, unspecified; F42.9 Obsessive-compulsive disorder, unspecified; F41.9 Anxiety disorder, unspecified; K20.9 Esophagitis, unspecified; K22.2 Esophageal obstruction; E03.9 Hypothyroidism, unspecified
CPT/HCPCS: 36415; 43239; 43450; 71045; 74018; 74177; 74420; 80053; 81001; 81025; 82150; 82607; 82728; 82746; 83540; 83690; 84466; 85025; 85045; 87086; 88305; 88312; 93005; 96361; 96366; 99284; C2617; J1100; J1956; J2001; J2250; J2405; J2765; J3410; J7030; Q9967

== ENCOUNTER → 2018-07-23 | Day surgery (SDC) | payer BC ==
[~2018-07-23] MED LIST: BIOTIN1 MG PO; CALCIUM 500+D1 EACH PO; CALCIUM CITRAT200 MG PO; DEXAMETHASONE SOD PHOS INJ 4 MG/ML VIAL ONE; EPHEDRINE SULFATE INJ 50 MG/10 ML SYR ONE; FENTANYL CITRATE/PF 100MCG/2 ML INJ ONE; FERROUS SULFAT325 MG PO; FOLIC ACID1 MG PO; GENTAMICIN 80MG/NS 100 ML 100 ML IV ONE; HYDROXYZINE HCL25 MG PO; IOPAMIDOL 610MG/1ML 300 MG/ML VIAL IV ONE; LEVOTHYROXINE50 MCG PO; LIDOCAINE HCL 2% LOCAL INJ 5 ML SDV VIAL INJ ONE; LYRICA200 MG PO; MELATONIN3 MG PO; MIDAZOLAM HCL 2 MG/2 ML VIAL ONE; MULTIVITAMINS1 EAC7 PO; NEXIUM40 MG PO; ONDANSETRON HCL INJ 2MG/ML 2ML 2 MG/ML VIAL ONE; OXYBUTYNIN CHLOR5 MG PO; PANTOPRAZOLE SO40 MG PO; PEPCID20 MG PO; PROPOFOL IV EMULSION 10 MG/ML 20 ML VIAL ONE; PROZAC20 MG PO; REMERON15 M1 PO; RISPERIDONE1 MG PO; SEROQUEL50 MG PO; SEVOFLURANE INHAL SOLN 250 ML PEN BTL ONE; SUBOXONE 2 MG-1 EAC2; THIAMINE PO; TYLENOL WITH C1 EACH PO; ZOFRAN8 MG PO; ZYRTEC10 M3 PO; [UNRECOGNIZED DRUG - OTHER] PO
--- OUTSIDE RECORDS SUMMARY | 2018-07-23 05:43 | XMS REPORT | Clinical Summary ---
Author Author [facility] [facility] Address Unknown Phone Unavailable Care Team Providers Care Traffic Analysis Technician Name Role Phone System, Provider Not In MD PCP Unavailable Allergies Comments Active Allergy Reactions Severity Noted Date Prochlorperazine 11/13/2017 Penicillins 11/13/2017 Propranolol 11/13/2017 Metoclopramide Hcl 11/13/2017 Guaifenesin 11/13/2017 Medications End Date Status Medication Sig Dispensed Refills Start Date Active midodrine (PROAMATINE) Take 2.5 mg 0 2.5 MG tabletIndications: by mouth 3 Symptomatic Orthostatic (three) times Hypotension a day. Active pregabalin (LYRICA) 300 Take 600 mg 0 MG capsuleIndications: by mouth Fibromyalgia daily. Active potassium chloride Take 20 mEq 0 (K-DUR) 20 MEQ CR by mouth 2 tabletIndications: (two) times a Hypokalemia day. Active folic acid (FOLVITE) 1 MG Take 1 mg by 0 tabletIndications: Folate mouth daily. Deficiency Active levothyroxine (SYNTHROID, Take 50 mcg 0 LEVOXYL) 50 mcg by mouth tabletIndications: every Hypothyroidism morning. Active pantoprazole (PROTONIX) Take 40 mg by 0 40 MG EC mouth daily. tabletIndications: Ulcer prevention Active thiamine 100 MG Take 100 mg 0 tabletIndications: by mouth Thiamine Deficiency daily. Active cyanocobalamin 100 MCG Take 100 mcg 0 tabletIndications: by mouth Prevention of Vitamin B12 daily. Deficiency 11/24/2017 Discontinued risperiDONE (RisperDAL) 3 Take 3 mg by 0 MG tablet mouth 2 (two) times a day. 11/24/2017 Discontinued ondansetron (ZOFRAN) 8 MG Take 8 mg by 0 tablet mouth every 8 (eight) hours as needed for nausea or vomiting. 11/24/2017 Discontinued oxyCODone (OxyCONTIN) 10 Take 10 mg by 0 mg tablet,oral mouth every only,ext.rel.12 hr ER 12 (twelve) tablet hours. 11/24/2017 Discontinued oxyCODone-acetaminophen Take 1 tablet 0 (PERCOCET) 10-325 mg per by mouth tablet every 4 (four) hours as needed for moderate pain. 12/23/2017 OLANZapine (ZYPREXA) 10 Take 1 tablet 30 tablet 0 MG tabletIndications: ED (10 mg total) 8 and anxiety by mouth nightly as needed (anxiety) for up to 30 days. 12/23/2017 OLANZapine (ZYPREXA) 5 MG Take 1 tablet 30 tablet 0 tabletIndications: ED and (5 mg total) 8 anxiety by mouth daily as needed (anxiety) for up to 30 days. 12/23/[address] 1 30 tablet 0 (SUBOXONE) 2-0.5 mg per tablet under 8 SL tabletIndications: the tongue Opioid Dependence daily for 30 days. Active Problems Problem Noted Date Benzodiazepine dependence 11/14/2017 Drug abuse 11/14/2017 Encounters Care Team Description Date Type Specialty Garth Lopez MD Janjua, Ejaz, DO D'Empaire, Inna, MD Flack, James N., MD Benzodiazepine dependence (Primary Dx); Anxiety disorder, unspecified type 11/13/2017 Hospital Psychiatry - Encounter 11/24/2017 after 07/22/2017 Social History Date Tobacco Use Types Packs/Day Years Used Never Smoker Smokeless Tobacco: Never Used Alcohol Use Drinks/Week oz/Week Comments No Sex Assigned at Date Recorded Not on file Industry Job Start Date Occupation Not on file Not on file Not on file Travel End Travel History Travel Start No recent travel history available. Last Filed Vital Signs Time Taken Vital Sign Reading 11/24/2017 6:37 AM CDT Blood Pressure 111/61 11/24/2017 6:37 AM CDT Pulse 93 11/24/2017 6:37 AM CDT Temperature 36.8 C (98.3 F) 11/24/2017 6:37 AM CDT Respiratory Rate 18 11/24/2017 6:37 AM CDT Oxygen Saturation 98% - Inhaled Oxygen - Concentration 11/24/2017 6:37 AM CDT Weight 62.8 kg (138 lb 6.4 oz) 11/14/2017 11:00 AM CDT Height 175.3 cm (5' 9") 11/24/2017 6:37 AM CDT Body Mass Index 20.44 Plan of Treatment Health Maintenance Due Date Last Done Comments CERVICAL CANCER SCREENING 2003 INFLUENZA VACCINE 02/03/2018 Procedures Comments Procedure Name Priority Date/Time Associated Diagnosis US DUPLEX VENOUS LOWER Routine 11/22/2017 EXTREMITY BILATERAL 9:10 AM CDT ZZESTIMATED GFR Routine 11/21/2017 11:50 AM CDT HC COMPLETE BLD COUNT Routine 11/21/2017 W/AUTO DIFF 11:50 AM CDT VITAMIN D 25 HYDROXY Routine 11/21/2017 LEVEL 11:50 AM CDT FOLATE RBC (GROUP TEST) Routine 11/21/2017 11:50 AM CDT VITAMIN B12 LEVEL Routine 11/21/2017 11:50 AM CDT COMPREHENSIVE METABOLIC Routine 11/21/2017 PANEL 11:50 AM CDT B NATRIURETIC PEPTIDE Routine 11/21/2017 11:50 AM CDT HEMOGLOBIN A1C STAT 11/14/2017 10:25 AM CDT ECG 12-LEAD STAT 11/13/2017 11:04 PM CDT LIPID PANEL STAT 11/13/2017 10:50 PM CDT ZZESTIMATED GFR STAT 11/13/2017 10:50 PM CDT LACTIC ACID LEVEL STAT 11/13/2017 10:50 PM CDT MAGNESIUM LEVEL STAT 11/13/2017 10:50 PM CDT PHOSPHORUS LEVEL STAT 11/13/2017 10:50 PM CDT SALICYLATE LEVEL STAT 11/13/2017 10:50 PM CDT ACETAMINOPHEN LEVEL STAT 11/13/2017 10:50 PM CDT ALCOHOL LEVEL, BLOOD STAT 11/13/2017 10:50 PM CDT T4, FREE STAT 11/13/2017 10:50 PM CDT THYROID STIMULATING STAT 11/13/2017 HORMONE 10:50 PM CDT COMPREHENSIVE METABOLIC STAT 11/13/2017 PANEL 10:50 PM CDT HC COMPLETE BLD COUNT STAT 11/13/2017 W/AUTO DIFF 10:50 PM CDT URINE CULTURE STAT 11/13/2017 10:28 PM CDT URINALYSIS SCREEN AND STAT 11/13/2017 MICROSCOPY, WITH REFLEX 10:23 PM CDT TO CULTURE URINE DRUGS OF ABUSE STAT 11/13/2017 SCREEN 10:23 PM CDT after 07/22/2017 Results * Pv duplex venous lower extremity (11/22/2017 9:10 AM CDT) Narrative Performed At [facility] Vascular Ultrasound Laboratory Lower Extremity Venous Report [id number]Name:Basim LAUGHLIN.ID:[id number] .Date: 11/22/2017 Refer.MD:JUNG YANG MD Exam Time: 8:44:00 AMStudy Type:LE Venous Height:69inWeight:133lb BSA: 1.74 m2 DOBAge:1980,37Y Sex: FEMALESonogrphr: Morales Thrasher, MAILES, RCS Pat. Stat.:Inpatient Room:[address] TapeVol: SB, CPT - 4: 42522 Echo Event ID:[id number] Order ID:[id number] Reason for Study:Bilateral leg edema; evaluate for [...] Ultrasound Laboratory Lower Extremity Venous Report [id number] [place] [address] Pat.Name: KYLIE LAUGHLIN Pat.ID: [id number] .Date: 11/22/2017 Refer.MD: JUNG YANG MD Exam Time: 8:44:00 AM Study Type:LE Venous Height: 69in Weight: 133lb BSA: 1.74 m2 Age: 7 1980,37Y Sex: FEMALE Sonogrphr: BETSY Yu, ROBERT Pat. Stat.:Inpatient Room: [address] Tape Vol: SB, CPT - 4: 67084 Echo Event ID:[id number] Order ID: [id number] Reason for Study:Bilateral leg edema; evaluate for [...] Michael Matthew MD, RPVI Performing Organization Address City/[facility]/Zipcode Phone Number [facility] [address] [place] [address] * Estimated GFR (11/21/2017 11:50 AM CDT) Only the most recent of 2 results within the time period is included. GFR Non Af Amer 81 mL/min/1.73 m2 [facility] DEPARTMENT OF PATHOLOGY AND GENOMIC MEDICINE GFR Af Amer >90 mL/min/1.73 m2 [facility] DEPARTMENT OF Comment: PATHOLOGY AND Chronic [...] Americans. Specimen Plasma specimen Performing Organization Address City/State/Zipcode Phone Number [facility] DEPARTMENT OF [address] [place] [address] PATHOLOGY AND GENOMIC MEDICINE * Vitamin D 25 hydroxy level (11/21/2017 11:50 AM CDT) Vitamin D, 25-hydroxy 56.6 30.0 - 150.0 ng/mL [facility] DEPARTMENT OF Comment: PATHOLOGY AND This assay reports the sum of GENOMIC MEDICINE 25-hydroxy vitamin D3 and 25-hydroxy vitamin [...] Blood Performing Organization Address City/State/Zipcode Phone Number [facility] DEPARTMENT OF [address] [place] [address] PATHOLOGY AND GENOMIC MEDICINE * CBC with platelet and differential (11/21/2017 11:50 AM CDT) Only the most recent of 2 results within the time period is included. WBC 7.40 4.50 - 11.00 k/uL [facility] DEPARTMENT OF PATHOLOGY AND GENOMIC MEDICINE RBC 3.44 (L) 4.20 - 5.50 m/uL [facility] DEPARTMENT OF PATHOLOGY AND GENOMIC MEDICINE HGB 10.6 (L) 12.0 - 16.0 g/dL [facility] DEPARTMENT OF PATHOLOGY AND GENOMIC MEDICINE HCT 34.1 (L) 37.0 - 47.0 % [facility] DEPARTMENT OF PATHOLOGY AND GENOMIC MEDICINE MCV 99.1 82.0 - 100.0 fL [facility] DEPARTMENT OF PATHOLOGY AND GENOMIC MEDICINE MCH 30.8 27.0 - 34.0 pg [facility] DEPARTMENT OF PATHOLOGY AND GENOMIC MEDICINE MCHC 31.1 31.0 - 37.0 g/dL [facility] DEPARTMENT OF PATHOLOGY AND GENOMIC MEDICINE RDW - SD 53.2 37.0 - 55.0 fL [facility] DEPARTMENT OF PATHOLOGY AND GENOMIC MEDICINE MPV 12.2 8.8 - 13.2 fL [facility] DEPARTMENT OF PATHOLOGY AND GENOMIC MEDICINE Platelet count 243 150 - 400 k/uL [facility] DEPARTMENT OF PATHOLOGY AND GENOMIC MEDICINE Nucleated RBC 0.00 /100 WBC [facility] DEPARTMENT OF PATHOLOGY AND GENOMIC MEDICINE Neutrophils 67.0 39.0 - 69.0 % [facility] DEPARTMENT OF PATHOLOGY AND GENOMIC MEDICINE Lymphocytes 27.7 25.0 - 45.0 % [facility] DEPARTMENT OF PATHOLOGY AND GENOMIC MEDICINE Monocytes 4.1 0.0 - 10.0 % [facility] DEPARTMENT OF PATHOLOGY AND GENOMIC MEDICINE Eosinophils 0.7 0.0 - 5.0 % [facility] DEPARTMENT OF PATHOLOGY AND GENOMIC MEDICINE Basophils 0.4 0.0 - 1.0 % [facility] DEPARTMENT OF PATHOLOGY AND GENOMIC MEDICINE Immature granulocytes 0.1Comment: "Immature 0.0 - 1.0 % [facility] DEPARTMENT OF granulocytes" (promyelocytes, PATHOLOGY AND myelocytes, metamyelocytes) GENOMIC MEDICINE Specimen Blood Performing Organization Address City/[facility]/[place] [address] [facility] * B natriuretic peptide (11/21/2017 11:50 AM CDT) BNP 6 0 - 100 pg/mL [facility] DEPARTMENT PATHOLOGY [facility] Specimen Blood Performing Organization Address City/[facility] [place] [address] PATH[facility] * Folate RBC (group test) (11/21/2017 11:50 AM CDT) RBC folate 1,455 499 - 1,504 ng/mL [facility] PATHOLOGY [facility] Specimen Blood Performing Organization Address City/[facility] [place] [address] PATH[facility] * Vitamin B12 level (11/21/2017 11:50 AM CDT) Vitamin B12 >1600 (H) 211 - 946 pg/mL [facility] DEPARTMENT OF Comment: PATHOLOGY AND Significant overlap exists GENOMIC MEDICINE between normal and deficiency states. However, most patients with deficiencies will have Serum B12 <200 pg/mL. Specimen Serum Performing Organization Address [facility] [place] [address] PATHOLOG[facility] * Comprehensive metabolic panel (11/21/2017 11:50 AM CDT) Only the most recent of 2 results within the time period is included. Sodium 140 135 - 148 mEq/L [facility] DEPARTMENT OF PATHOLOGY AND GENOMIC MEDICINE Potassium 4.2 3.5 - 5.0 mEq/L [facility] DEPARTMENT OF PATHOLOGY AND GENOMIC MEDICINE Chloride 105 98 - 112 mEq/L [facility] DEPARTMENT OF PATHOLOGY AND GENOMIC MEDICINE CO2 26 24 - 31 mEq/L [facility] DEPARTMENT OF PATHOLOGY AND GENOMIC MEDICINE Anion gap 9@ANIO 7 - 15 mEq/L [facility] DEPARTMENT OF PATHOLOGY AND GENOMIC MEDICINE BUN 10 6 - 20 mg/dL [facility] DEPARTMENT OF PATHOLOGY AND GENOMIC MEDICINE Creatinine 0.8 0.5 - 0.9 mg/dL [facility] DEPARTMENT OF PATHOLOGY AND GENOMIC MEDICINE Glucose 91 65 - 99 mg/dL [facility] DEPARTMENT OF PATHOLOGY AND GENOMIC MEDICINE Calcium 8.2 (L) 8.3 - 10.2 mg/dL [facility] DEPARTMENT OF PATHOLOGY AND GENOMIC MEDICINE Protein 5.4 (L) 6.3 - 8.3 g/dL [facility] DEPARTMENT OF Comment: PATHOLOGY AND GENOMIC MEDICINE 4.6-7.0 g/dL 1 week 4.4-7.6 g/dL 7 months-1year 5.1-7.3 g/dL 1-2 years5.6-7 .5 g/dL >3 years6.0-8 .0 g/dL 18-150 6.3-8.3 g/dL Albumin 2.1 (L) 3.5 - 5.0 g/dL [facility] DEPARTMENT OF PATHOLOGY AND GENOMIC MEDICINE A/G ratio 0.6 (L) 0.7 - 3.8 [facility] DEPARTMENT OF PATHOLOGY AND GENOMIC MEDICINE Alkaline phosphatase 102 35 - 104 U/L [facility] DEPARTMENT OF PATHOLOGY AND GENOMIC MEDICINE AST 39 (H) 10 - 35 U/L [facility] DEPARTMENT OF PATHOLOGY AND GENOMIC MEDICINE ALT 25 5 - 50 U/L [facility] DEPARTMENT OF PATHOLOGY AND GENOMIC MEDICINE Total bilirubin 0.3 0.0 - 1.2 mg/dL [facility] DEPARTMENT OF PATHOLOGY AND GENOMIC MEDICINE Specimen Plasma specimen Performing Organization Address City/State/[facility]ode Phone Number [facility] DEPARTMENT OF [address] [place] [address] PATHOLOGY AND GENOMIC MEDICINE * Hemoglobin A1c (11/14/2017 10:25 AM CDT) Hemoglobin A1C 4.1 4.0 - 5.6 % [facility] DEPARTMENT OF Comment: PATHOLOGY AND HbA1c [...] Performed At ADD ON PER NURSE SHIRA11/14/201710:25 [facility] DEPARTMENT OF ?Specimen must be placed on ice and delivered immediately to PATHOLOGY AND ?the [facility]. GENOMIC MEDICINE ?Specimen must be received in the laboratory within 2 hours of ?collection. ?Specimen Source->Urine Performing Organization Address [facility] [place] [address] PATHOLOGY AND [facility] * ECG 12 lead (11/13/2017 11:04 PM CDT) Ventricular rate 89 [facility] MUSE Atrial rate 89 [facility] MUSE FL interval 146 [facility] MUSE QRSD interval 76 HM MUSE QT interval 342 [facility] MUSE QTC interval 416 [facility] MUSE P axis 1 19 [facility] MUSE QRS axis 1 44 [facility] MUSE T wave axis 16 [facility] MUSE EKG impression Normal sinus rhythm-Low [facility] MUSE voltage QRS-Borderline ECG-No previous ECGs available- Performing Organization Address [facility] [place] [address] * Thyroid stimulating hormone (11/13/2017 10:50 PM CDT) TSH 3.57 0.27 - 4.20 uIU/mL [facility] DEPARTMENT PATHOLOGY AND [facility] MEDICINE Specimen Plasma specimen Performing Organization Address [facility] [place] [address] PATHOLOGY AND [facility] MEDICINE * T4, free (11/13/2017 10:50 PM CDT) T4, free 1.3 0.9 - 1.7 ng/dL [facility] DEPARTMENT OF PATHOLOGY AND GENOMIC MEDICINE Specimen Plasma specimen Performing Organization Address [facility] [place] [address] PATHOLOGY [facility] MEDICINE * Phosphorus level (11/13/2017 10:50 PM CDT) Phosphorus 3.2 2.4 - 4.5 mg/dL [facility] DEPARTMENT OF PATHOLOGY AND GENOMIC MEDICINE Specimen Plasma specimen Performing Organization Address City/State/Zipcode Phone Number [facility] [place] [address] PATHOLOGY AND GENOMIC MEDICINE * Magnesium level (11/13/2017 10:50 PM CDT) Magnesium 1.5 (L) 1.6 - 2.6 mg/dL [facility] DEPARTMENT OF PATHOLOGY AND GENOMIC MEDICINE Specimen Plasma specimen Performing Organization Address [facility] Cent[facility]ode Phone Number [facility] [place] [address] PATHOLOGY AND GENOMIC MEDICINE * Lactic acid level (11/13/2017 10:50 PM CDT) Lactic acid 1.1 0.5 - 2.2 mmol/L [facility] DEPARTMENT OF PATHOLOGY AND GENOMIC MEDICINE Specimen Plasma specimen Performing Organization Address [facility] Phone Number [facility] [place] [address] PATHOLOGY AND GENOMIC MEDICINE * Alcohol level, blood (11/13/2017 10:50 PM CDT) Alcohol None Detected mg/dL [facility] DEPARTMENT OF Comment: PATHOLOGY AND Normal GENOMIC MEDICINE None Detected Legal Intoxication in [place]80 mg/dL (0.08%) - Whole Blood Toxic Concentration 200 mg/dL (0.2%) Potentially Fatal3 50 - 500 mg/dL (0.35 - 0.5%) Alcohol percent None Detected % [facility] DEPARTMENT OF PATHOLOGY AND GENOMIC MEDICINE Specimen Plasma specimen Performing Organization Address [facility] Number [facility] [place] [address] PATHOLOGY AND GENOMIC MEDICINE * Acetaminophen level (11/13/2017 10:50 PM CDT) Acetaminophen level <15.0 10.0 - 30.0 ug/mL [facility] DEPARTMENT OF Comment: PATHOLOGY AND Therapeutic GENOMIC MEDICINE 10-30 ug/mL Possible Toxicity 150-200 ug/mL Probable Toxicity >200 ug/mL Specimen Plasma specimen Performing Organization Address [facility] Cent[facility]ode Phone Number [facility] [place] [address] PATHOLOGY AND GENOMIC MEDICINE * Salicylate level (11/13/2017 10:50 PM CDT) Salicylate <3.0 3.0 - 30.0 mg/dL [facility] DEPARTMENT OF PATHOLOGY AND GENOMIC MEDICINE Specimen Plasma specimen Performing Organization Address [facility] Cent[facility]ode Phone Number [address] [address] PATHOLOGY AND GENOMIC MEDICINE * Lipid panel (11/13/2017 10:50 PM CDT) Cholesterol 116 <200 mg/dL [facility] DEPARTMENT OF PATHOLOGY AND GENOMIC MEDICINE Triglycerides 90 <150 mg/dL [facility] DEPARTMENT OF PATHOLOGY AND GENOMIC MEDICINE HDL cholesterol 61 >40 mg/dL [facility] DEPARTMENT OF PATHOLOGY AND GENOMIC MEDICINE LDL cholesterol 29Comment: Result obtained by <100 mg/dL [facility] DEPARTMENT OF direct LDL measurement PATHOLOGY AND GENOMIC MEDICINE Lipid panel SeeBelow [facility] DEPARTMENT OF interpretation Comment: PATHOLOGY AND [...] Performed At ADD ON PER NURSE SHIRA11/14/201710:25 [facility] DEPARTMENT OF ?Specimen must be placed on ice and delivered immediately to PATHOLOGY AND ?the [facility]. GENOMIC MEDICINE ?Specimen must be received in the laboratory within 2 hours of ?collection. ?Specimen Source->Urine Performing Organization Address City/State/Zipcode Phone Number [address] [address] PATHOLOGY AND GENOMIC MEDICINE * Urine culture (11/13/2017 10:28 PM CDT) Urine culture SEE COMMENTComment: [facility] DEPARTMENT OF Bacteriuria screen negative. PATHOLOGY AND GENOMIC MEDICINE Performing Organization Address City/State/Zipcode Phone Number [place] [phone] [facility] * Urinalysis screen and microscopy, with reflex to culture (11/13/2017 10:23 PM CDT) Specimen site Clean catch [facility] DEPARTMENT OF PATHOLOGY AND GENOMIC MEDICINE Color, UA Yellow [facility] DEPARTMENT OF PATHOLOGY AND GENOMIC MEDICINE Appearance, UA Clear [facility] DEPARTMENT OF PATHOLOGY AND GENOMIC MEDICINE Specific gravity, UA 1.012 1.001 - 1.035 [facility] DEPARTMENT OF PATHOLOGY AND GENOMIC MEDICINE pH, UA 6.0 5.0 - 8.5 [facility] DEPARTMENT OF PATHOLOGY AND GENOMIC MEDICINE Protein, UA Negative Negative [facility] DEPARTMENT OF PATHOLOGY AND GENOMIC MEDICINE Glucose, UA Negative Negative [facility] DEPARTMENT OF PATHOLOGY AND GENOMIC MEDICINE Ketones, UA Negative Negative [facility] DEPARTMENT OF PATHOLOGY AND GENOMIC MEDICINE Bilirubin, UA Negative Negative [facility] DEPARTMENT OF PATHOLOGY AND GENOMIC MEDICINE Blood, UA Negative Negative [facility] DEPARTMENT OF PATHOLOGY AND GENOMIC MEDICINE Nitrite, UA Negative Negative [facility] DEPARTMENT OF PATHOLOGY AND GENOMIC MEDICINE Urobilinogen, UA 2.0 (A) <2.0 [facility] DEPARTMENT OF PATHOLOGY AND GENOMIC MEDICINE Leukocyte esterase, UA Negative Negative [facility] DEPARTMENT OF PATHOLOGY AND GENOMIC MEDICINE Epithelial cells, UA <1 /HPF [facility] DEPARTMENT OF PATHOLOGY AND GENOMIC MEDICINE WBC, UA 2 0 - 4 /HPF [facility] DEPARTMENT OF PATHOLOGY AND GENOMIC MEDICINE RBC, UA <1 0 - 5 /HPF [facility] DEPARTMENT OF PATHOLOGY AND GENOMIC MEDICINE Bacteria, UA Few None seen [facility] DEPARTMENT OF PATHOLOGY AND GENOMIC MEDICINE Yeast, UA None seen [facility] DEPARTMENT OF PATHOLOGY AND GENOMIC MEDICINE Yeast with pseudohyphae, None seen [facility] DEPARTMENT OF UA PATHOLOGY AND GENOMIC MEDICINE Calcium oxalate crystals, Few [facility] DEPARTMENT OF UA PATHOLOGY AND GENOMIC MEDICINE Specimen Urine Performing Organization Address City/[facility] Cent[facility]ode Phone Number [place] [phone] PATHOLOGY AND GENOMIC MEDICINE * Urine drugs of abuse screen (11/13/2017 10:23 PM CDT) Amphetamine screen, urine Negative [facility] DEPARTMENT OF PATHOLOGY AND GENOMIC MEDICINE Barbiturate screen, urine Negative [facility] DEPARTMENT OF PATHOLOGY AND GENOMIC MEDICINE Benzodiazepine screen, Negative [facility] DEPARTMENT OF urine PATHOLOGY AND GENOMIC MEDICINE Cannabinoid screen, urine Negative [facility] DEPARTMENT OF PATHOLOGY AND GENOMIC MEDICINE Cocaine screen, urine Negative [facility] DEPARTMENT OF PATHOLOGY AND GENOMIC MEDICINE Methadone metabolite Negative [facility] DEPARTMENT OF (EDDP), urine PATHOLOGY AND GENOMIC MEDICINE Opiates screen, urine Negative [facility] DEPARTMENT OF PATHOLOGY AND GENOMIC MEDICINE Oxycodone screen, urine Positive (A) [facility] DEPARTMENT OF PATHOLOGY AND GENOMIC MEDICINE Phencyclidine screen, Negative [facility] DEPARTMENT OF urine PATHOLOGY AND GENOMIC MEDICINE Tricyclic screen, urine Negative [facility] DEPARTMENT OF Comment: PATHOLOGY AND Drug [...] Urine Performing Organization Address City/State/Zipcode Phone Number [facility] DEPARTMENT OF [address] [place] [phone] PATHOLOGY AND GENOMIC MEDICINE after 07/22/2017 Insurance Payer Benefit Subscriber ID Type Phone Address Plan / Group BCBS BCBS xxxxxxxxxxxx PPO CHOICE PPO/[employer] PPO Advance Directives Patient has advance care planning documents on file. For more information, lina healy contact: Sukhjinder Cunningham [address] [place] [id number]
[2018-07-23 06:23] LABS: BASOPHILS % 0.7 % (0.0-1.0); EOSINOPHILS # (AUTO) 0.1 (0.0-0.4); HEMATOCRIT 39.4 % (34.2-44.1); HEMOGLOBIN 12.2 g/dL (12.0-16.0); LYMPHOCYTES # (AUTO) 2.5 (1.0-3.2); LYMPHOCYTES % 41.8 % (18.0-39.1); MEAN CORPUSCULAR HEMOGLOBIN 29.3 pg (28-32); MEAN CORPUSCULAR VOLUME 94.7 fL (81-99); MONOCYTES # (AUTO) 0.4 (0.2-0.8); MONOCYTES % 5.8 % (4.4-11.3); NEUTROPHILS % 49.5 % (38.7-80.0); PLATELET COUNT 258 x10e3/uL (140-360); RED BLOOD COUNT 4.16 x10e6/uL (3.6-5.1); RED CELL DISTRIBUTION WIDTH 12.6 % (11.7-14.4)
[2018-07-23 06:55] LABS: ALANINE AMINOTRANSFERASE 47 IU/L (0-55); ALBUMIN 2.5 g/dL (3.5-5.0); ALBUMIN/GLOBULIN RATIO 0.8 (0.8-2.0); ALKALINE PHOSPHATASE 142 IU/L (40-150); ANION GAP 13.3 mmol/L (8-16); BLOOD UREA NITROGEN 5 mg/dL (7-26); BUN/CREATININE RATIO 8 (6-25); CALCIUM 8.4 mg/dL (8.4-10.2); CARBON DIOXIDE 31 mmol/L (22-29); CHLORIDE 102 mmol/L (98-107); CREATININE, SERUM 0.64 mg/dL (0.57-1.11); EST GLOMERULAR FILTRATION RATE > 60 ML/MIN (60-); GLUCOSE 79 mg/dL (74-118); POTASSIUM 4.3 mmol/L (3.5-5.1); SODIUM 142 mmol/L (136-145)
[2018-07-23 08:40] VITALS: BP 111/79
--- NOTE | 2018-07-24 20:19 | Operative Report ---
DATE OF PROCEDURE: July 23, 2018 PREOPERATIVE DIAGNOSES 1. Indwelling right ureteral stent. 2. Right ureteral calculus. POSTOPERATIVE DIAGNOSES 1. Indwelling right ureteral stent. 2. Right ureteral calculus. PROCEDURES 1. Cystourethroscopy with removal of right indwelling stent (entirely separate procedure for diagnosis of right indwelling stent). 2. Right-sided ureteroscopy (entirely separate procedure for diagnosis of right ureteral calculus). 3. Supervision of fluoroscopy. 4. Interpretation of retrograde pyelography. ANESTHESIA: General. ESTIMATED BLOOD LOSS: Minimal. COMPLICATIONS: None. INDICATIONS FOR PROCEDURE: Ms. Silva is a very pleasant 38-year-old female who had pervious stent placement and had ureteral calculi. She and I had a long discussion in regard to alternatives, risks and benefits including doing nothing, stent removal, ureteroscopy, shockwave lithotripsy, percutaneous surgery, and open surgery. She voiced an understanding of the options, the alternatives, and the risks and benefits, and she elected to proceed. PROCEDURE IN DETAIL: After informed consent was obtained, the patient was taken to the operative suite and she was placed supine on the operating table. She underwent general anesthesia by the anesthesia service, placed in the dorsal lithotomy position and sterilely prepped and draped for cystoscopy. A 22.5-Uzbek cystoscope was inserted per urethra and a normal urethra was noted. Panendoscopy of the bladder revealed no tumors, no stones. Stent was encrusted and seen extruding from the right ureteral orifice . This was removed and intact. Guidewire was inserted and wire was seen to coil at the level of renal pelvis on nephroscopy. Stent was removed and intact. Ureteroscope was driven to the lower renal pelvis. Retrograde pyelogram was performed through the scope revealing no evidence of other filling defects. No evidence of stones. At this time, the wire was removed. Uteroscope was withdrawn. The patient was awakened from anesthesia and transported to the recovery room in excellent condition. No untoward effects noted. Job#: [id number]
== END | disposition home or self-care (01) ==
LOC: OR 05:41
PROVIDERS: ATTEND Urology
DX: N20.1 Calculus of ureter (principal); Z46.6 Encounter for fitting and adjustment of urinary device; K21.9 Gastro-esophageal reflux disease without esophagitis; E03.9 Hypothyroidism, unspecified; F41.9 Anxiety disorder, unspecified; Z88.0 Allergy status to penicillin; Z88.8 Allergy status to other drugs, medicaments and biological substances; Z91.040 Latex allergy status
CPT/HCPCS: 36415; 52351; 74420; 80053; 81025; 85025; J1100; J1580; J2001; J2250; J2405; J2704; Q9967

== ENCOUNTER 2021-03-08 12:53 | Emergency (ER) | payer SELFPAY ==
[~2021-03-08] VITALS: Ht 175.3 cm; Wt 49.4 kg
[~2021-03-08 12:53] MED LIST changes: -DEXAMETHASONE SOD PHOS INJ 4 MG/ML VIAL ONE; -EPHEDRINE SULFATE INJ 50 MG/10 ML SYR ONE; -FENTANYL CITRATE/PF 100MCG/2 ML INJ ONE; -GENTAMICIN 80MG/NS 100 ML 100 ML IV ONE; -IOPAMIDOL 610MG/1ML 300 MG/ML VIAL IV ONE; -LIDOCAINE HCL 2% LOCAL INJ 5 ML SDV VIAL INJ ONE; -MIDAZOLAM HCL 2 MG/2 ML VIAL ONE; -ONDANSETRON HCL INJ 2MG/ML 2ML 2 MG/ML VIAL ONE; -PROPOFOL IV EMULSION 10 MG/ML 20 ML VIAL ONE; -SEVOFLURANE INHAL SOLN 250 ML PEN BTL ONE
== END 2021-03-08 13:33 | disposition home or self-care (01) ==
LOC: ER 13:26
DX: M62.838 Other muscle spasm (principal); I10 Essential (primary) hypertension; F41.9 Anxiety disorder, unspecified; K21.9 Gastro-esophageal reflux disease without esophagitis; F31.9 Bipolar disorder, unspecified; M79.7 Fibromyalgia; Z98.84 Bariatric surgery status
CPT/HCPCS: 99283